=== PATIENT | female | born 1945 | race Caucasian/White ===

== ENCOUNTER 2019-06-17 15:49 | Outpatient (CLI) | payer MEDICARE, SELFPAY ==
--- NOTE | ~2019-06-17 | XR_ITS ---
EXAMINATION: XR chest 2V DATE: 06/17/2019 16:13 INDICATION: Other forms of dyspnea. Left chest pain. TECHNIQUE: Frontal and lateral views of the chest were obtained. COMPARISON: Chest 2 views 02/26/2014 FINDINGS: The chest demonstrates clear lungs without pneumonia, pleural effusion, or pneumothorax. Th e heart size is normal. There is a small hiatal hernia. IMPRESSION: 1. Small hiatal hernia. Reviewed, dictated and finalized at location A. CEMENTER IMPRESSION: 1. Small hiatal hernia.
== END 2019-06-17 15:50 | disposition home or self-care (01) ==
LOC: ANHIMG 15:52
PROVIDERS: PCP Family Medicine; Visit Provider Nurse Practitioner Family
DX: R06.09 Other forms of dyspnea (principal); K44.9 Diaphragmatic hernia without obstruction or gangrene
CPT/HCPCS: 71046

== ENCOUNTER 2019-06-26 12:27 | Outpatient (CLI) | payer MEDICARE, SELFPAY ==
--- NOTE | 2019-06-29 14:19 | WPDPFTINT ---
PFT Interpretation PFT Interpretation: This PFT met all criteria for ATS standards and reproducibility FEV/FVC post bronchodilator 83% of predicted FEV1 106% FVC 93% TLC 87% RV 96% RV/TLC 45% DLCO 72% when adjusted for alveolar volume but not adjusted for hemoglobin Flow volume loops appeared normal Impression: No significant obstruction but good response to bronchodilators which could be due to improved patient effort or true response. Mildly reduced diffusion capacity. Reactive airway disease or other lung diseases cannot be ruled out. Clinical correlation is advised.
== END 2019-06-26 12:28 | disposition home or self-care (01) ==
PROVIDERS: PCP Family Medicine; Visit Provider Nurse Practitioner Family
DX: R06.09 Other forms of dyspnea (principal)
CPT/HCPCS: 94060; 94726; 94729

== ENCOUNTER 2020-05-03 15:44 | Outpatient (CLI) | payer MEDICARE, SELFPAY ==
--- NOTE | ~2020-05-03 | MM_ITS ---
EXAMINATION: MM screening cristel BI w brianne HISTORY: Screening TECHNIQUE: Craniocaudal and mediolateral oblique 3-D tomosynthesis images were obtained and synthetic 2-D images were generated. CAD analysis was submitted and interpreted. COMPARISON: Comparison to multiple prior studies sequentially, with oldest reviewed study dated 03/08. BREAST PARENCHYMAL COMPOSITION: There are scattered areas of fibroglandular density. FINDINGS: There is no evidence of suspicious mass, calcification, or architectural distortion to sugg est malignancy in either breast. There has been no suspicious interval change. IMPRESSION: 1. No mammographic evidence of malignancy. 2. Recommend routine screening mammography in one year. BI-RADS Category 1: Negative Reviewed, dictated and finalized at location A. 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
== END 2020-05-03 15:45 | disposition home or self-care (01) ==
LOC: ANHIMG 15:45
PROVIDERS: PCP Family Medicine; Visit Provider Nurse Practitioner Family
DX: Z12.31 Encounter for screening mammogram for malignant neoplasm of breast (principal)
CPT/HCPCS: 77063; 77067

== ENCOUNTER 2020-05-19 12:53 | Outpatient (CLI) | payer MEDICARE, SELFPAY ==
--- NOTE | ~2020-05-19 | DEXA_ITS ---
Bone Density Report Name: Luis Bruner Age: 74 Sex: Female Ethnicity: White Date of : 1945 Indication: postmenopausal; hysterectomy; Referring Provider: Soco Petersen Study: Bone densitometry was performed. Exam Date: May 19, 2020 Accession number: [id number] Bone Density: Region BMD T-score Z-score Classification AP Spine (L1-L4) 0.924 -1.1 1.2 Osteopenia Femoral Neck (Left) 0.711 -1.2 0.8 Osteopenia Total Hip (Left) 0.866 -0.6 1.1 Normal Total Hip Bilateral Avg 0.882 -0.5 1.2 Normal Femoral Neck (Right) 0.692 -1.4 0.6 Osteopenia Total Hip (Right) 0.897 -0.4 1.3 Normal World Health Organization criteria for BMD impression classify patients as: Normal (T-score at or above -1.0), Osteopenia (T-score between -1.0 and -2.5), or Osteoporosis (T-score at or below -2.5). 10-year Fracture Risk(1): Major Osteoporotic Fracture 11% Hip Fracture 1.8% Reported Risk Factors: [place] (), Neck BMD=0.692, BMI=28.0 (1) FRAX(R) Version 3.08. Fracture probability calculated for an untreated patient. Fracture probability may be lower if the patient has received treatment. Clinical Information Provided by Patient: Has used the following medications: Vitamin D Has the following medical conditions: Hysterectomy Patient maximum height was 70 Menopause Age: 48 Drinks caffeinated beverages Onset of menses at age 14 Number of children 2 Impression: The patient has low bone mass, based on the Right Femoral Neck T-score. The patient has an estimated ten-year risk of hip fracture of 1.8% and an estimated ten-year risk of major fracture of 11%, based on the WHO FRAX algorithm. Discussion: BONE DENSITY IS LOW AT ONE OR MORE SKELETAL SITES. This patient's lowest T-score is low at one or more skeletal sites. It meets the World Health Organization's (WHO) criteria for ?low bone mass? (T-score between -1.0 and -2.5). The patient's 10-year risk of fracture as calculated by FRAX is less than the threshold where pharmacological therapy is recommended by the National Osteoporosis Foundation (NOF). However, all treatment decisions require clinical judgment and consideration of individual patient factors, including patient preferences, comorbidities, previous drug use, risk factors not captured in the FRAX model (e.g., frailty, falls, vitamin D deficiency, increased bone turnover, interval significant decline in bone density) and possible under or overestimation of fracture risk by FRAX. The patient should follow a healthful lifestyle (good nutrition with adequate calcium and vitamin D, and appropriate weight-bearing exercise). Follow-Up: Consider repeating this study in 2 to 3 years to reassess this patient's status, or sooner if there is some new clinical indication. Reported by: SASHA on 05/19/2020 1:11:00 PM
== END 2020-05-19 12:54 | disposition home or self-care (01) ==
PROVIDERS: PCP Family Medicine; Visit Provider Nurse Practitioner Family
DX: Z78.0 Asymptomatic menopausal state (principal); M85.88 Other specified disorders of bone density and structure, other site; M85.852 Other specified disorders of bone density and structure, left thigh; M85.851 Other specified disorders of bone density and structure, right thigh
CPT/HCPCS: 77080

== ENCOUNTER → 2020-08-23 11:10 | Outpatient (CLI) | payer MEDICARE, SELFPAY ==
--- NOTE | ~2020-08-23 | XR_ITS ---
XR abdomen/kub 1V DATE: 08/23/2020 11:27 INDICATION: Low abdominal pain, constipation. Microhematuria. TECHNIQUE: 2 supine AP views COMPARISON: 08/10/2016 KUB FINDINGS: There is a prominent amount of fecal material throughout most of the colon. No bowel obstru ction is evident. The psoas shadows are intact. No visceromegaly is evident. Distortion is intact. There are numerous calcified splenic granulomas. There is elevation of the right diaphragm. The lung bases appear clear. There is scoliosis and multilevel degenerative disc disease of the lumbar spine. There is a transitio nal lumbosacral vertebra with sacralization and pseudoarthrosis on the right. IMPRESSION: Prominent amount of fecal material in the colon; no bowel obstruction Reviewed, dictated and finalized at Location A. Reviewed, dictated and finalized at location A. IMPRESSION: Prominent amount of fecal material in the colon; no bowel obstructi on
== END ==
PROVIDERS: PCP Nurse Practitioner Family; Visit Provider Nurse Practitioner Family
DX: K59.00 Constipation, unspecified (principal)
CPT/HCPCS: 74018

== ENCOUNTER 2020-12-09 09:16 | Emergency (ER) | payer MEDICARE, SELFPAY ==
--- NOTE | ~2020-12-09 | XR_ITS ---
EXAMINATION: XR shoulder RT 1V INDICATION: Postreduction, second attempt TECHNIQUE: AP view of the right shoulder is obtained. COMPARISON: 1027 hours FINDINGS: The previously described glenohumeral dislocation has been reduced. Alignment is anatomic. The Hill-Sachs deformity questioned on earlier radiographs is not definitely seen. There is mild oste oarthritis of the acromioclavicular joint. IMPRESSION: 1. Reduced shoulder dislocation. Reviewed, dictated and finalized at location A.
--- NOTE | ~2020-12-09 | XR_ITS ---
EXAMINATION: XR shoulder RT min 2V INDICATION: Right shoulder pain and deformity TECHNIQUE: Three views of the right shoulder are submitted. COMPARISON: None FINDINGS: There is anterior and inferior dislocation of the humeral head with respect to the glenoid. The acromioclavicular joint is normal. There is a possible impaction fracture at the superolateral a spect of the right humeral head. Soft tissues are unremarkable. IMPRESSION: 1. Anterior and inferior dislocation of the right humeral head with possible Hill-Sachs fracture. Reviewed, dictated and finalized at location A. IMPRESSION: 1. Anterior and inferior dislocation of the right humeral head with possible Hi ll-Sachs fracture.
--- NOTE | ~2020-12-09 | XR_ITS ---
EXAMINATION: XR chest 1V portable INDICATION: Right-sided pain TECHNIQUE: Portable AP chest at 0934 hours COMPARISON: 06/17/2019 FINDINGS: The lungs are free of acute opacities. There is no pleural effusion or pneumothorax. The ca rdiomediastinal silhouette is normal. There is anterior and inferior dislocation of the right humeral head. IMPRESSION: 1. No acute cardiopulmonary abnormality. 2. Anterior and inferior dislocation of the right humeral head. Reviewed, dictated and finalized at location A.
--- NOTE | ~2020-12-09 | XR_ITS ---
EXAMINATION: XR shoulder RT 1V INDICATION: Right shoulder dislocation post reduction TECHNIQUE: Single AP view of the right shoulder is obtained. COMPARISON: 0935 hours FINDINGS: There is persistent dislocation of the humeral head with respect to the glenoid. Evaluation is limited by single view examination. Hill-Sachs fracture is again questioned. IMPRESSION: 1. Persistent right glenohumeral dislocation. Reviewed, dictated and finalized at location A.
--- NOTE | ~2020-12-09 | XR_ITS ---
EXAMINATION: XR humerus RT INDICATION: Right arm pain and deformity TECHNIQUE: Two views of the right humerus are obtained. COMPARISON: None available FINDINGS: There is anterior and inferior dislocation of the humeral head. No fracture is identified. The soft tissues are unremarkable. IMPRESSION: 1. Anterior and inferior dislocation of the humeral head. Reviewed, dictated and finalized at location A.
[2020-12-09 09:20] VITALS: BP 104/66; PULSE 62; RESP 12; TEMP 36.5; O2SAT 97
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
[2020-12-09] MEDS: MORPHINE SULFATE (*CRX) 4 MG/ML INJ IV PUSH (09:53)
[2020-12-09] MEDS: LACTATED RINGERS 1,000 ML 999 ML (09:54)
[2020-12-09 10:04] VITALS: BP 143/84; PULSE 70; RESP 12; O2SAT 100
[2020-12-09 11:20] VITALS: BP 155/76; PULSE 73; RESP 18; O2SAT 99
[2020-12-09 11:21] VITALS: BP 155/76; PULSE 72; RESP 18; O2SAT 100
[2020-12-09] MEDS: TETANUS,DIPHTHERIA,AC PERTUSSIS ADULT (0.5 ML) BOOSTRIX IM (11:39)
[2020-12-09] MEDS: KETOROLAC 15 MG/ML VIAL (*BKC) IV PUSH (12:13)
[2020-12-09 12:15] VITALS: BP 145/77; PULSE 75; RESP 18; O2SAT 98
[2020-12-09 12:52] VITALS: BP 145/77; PULSE 75; RESP 18; O2SAT 98
== END 2020-12-09 12:55 | disposition home or self-care (01) ==
PROVIDERS: Emergency Provider Emergency Medicine; PCP Nurse Practitioner Family
DX: S43.014A Anterior dislocation of right humerus, initial encounter (principal); Z23 Encounter for immunization; I10 Essential (primary) hypertension; E78.5 Hyperlipidemia, unspecified; K21.9 Gastro-esophageal reflux disease without esophagitis; Z87.891 Personal history of nicotine dependence; V18.4XXA Pedal cycle driver injured in noncollision transport accident in traffic accident, initial encounter; Y93.55 Activity, bike riding
CPT/HCPCS: 23650; 71045; 73020; 73030; 73060; 90471; 90715; 96374; 96375; 99285; J1885; J2270; J7120

== ENCOUNTER → 2021-05-05 01:58 | Outpatient (CLI) | payer MEDICARE, SELFPAY ==
[2021-05-06 14:05] LABS: SARS-CoV-2 RNA PCR Positive
== END ==
PROVIDERS: PCP Family Medicine; Visit Provider Nurse Practitioner
DX: U07.1 COVID-19 (principal)
CPT/HCPCS: C9803; U0003; U0005

== ENCOUNTER 2021-05-25 12:06 | Outpatient (CLI) | payer MEDICARE, SELFPAY ==
--- NOTE | ~2021-05-25 | MM_ITS ---
EXAMINATION: MM screening cristel BI w brianne HISTORY: Screening TECHNIQUE: Craniocaudal and mediolateral oblique 3-D tomosynthesis images were obtained and synthetic 2-D images were generated. CAD analysis was submitted and interpreted. COMPARISON: Comparison to multiple prior studies sequentially, with oldest reviewed study dated 03/08. BREAST PARENCHYMAL COMPOSITION: There are scattered areas of fibroglandular density. FINDINGS: There is no evidence of suspicious mass, calcification, or architectural distortion to sugg est malignancy in either breast. There has been no suspicious interval change. IMPRESSION: 1. No mammographic evidence of malignancy. 2. Recommend routine screening mammography in one year. BI-RADS Category 1: Negative Reviewed, dictated and finalized at location A. 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
== END 2021-05-25 12:07 | disposition home or self-care (01) ==
LOC: ANHIMG 12:10
PROVIDERS: PCP Family Medicine; Visit Provider Family Medicine
DX: Z12.31 Encounter for screening mammogram for malignant neoplasm of breast (principal)
CPT/HCPCS: 77063; 77067

== ENCOUNTER 2021-10-28 01:12 | Day surgery (SDC) | payer MEDICARE, SELFPAY ==
[2021-10-10 14:33] VITALS: BMI 28.8
--- NOTE | 2021-10-27 10:23 | WPDANESEPPF ---
Anes - Initial Pre Proc Eval Procedure: Operation Date: 10/28/21 08:30 Proposed Procedures p Screening Colonoscopy - Dat Landry MD Date/Time: 10/27/21 10:23 Surgeon: Dat Landry MD Pre Op Diagnosis: family hx of colon ca, hx of colon polyps Patient Data Age: 75 Gender: F Height: 1.75 m Weight: 88.5 kg Allergies Allergy/AdvReac Type Severity Reaction Status Date / Time amoxicillin Allergy Unknown Unknown Verified 10/28/21 07:42 Antihistamines - Alkylamine Allergy Unknown Hyperactive Verified 10/28/21 07:42 ANTIHISTAMINES AdvReac Unknown ANXIOUS, Uncoded 10/28/21 07:42 RESTLESS Home Medications Medication Instructions Recorded Confirmed Type cholecalciferol (vitamin D3) 50 2,000 unit PO DAILY 03/10/19 10/10/21 History mcg (2,000 unit) capsule multivitamin 1 tablet PO DAILY 03/10/19 10/10/21 History pantoprazole 40 mg tablet,delayed 40 mg PO DAILY #90 tabs 06/06/21 10/06/21 Rx release alprazolam 0.25 mg tablet 0.25 mg PO BID PRN anxiety #60 tabs 09/02/21 10/10/21 Rx losartan 50 mg tablet 50 mg PO DAILY #90 tabs 09/02/21 10/10/21 Rx ciprofloxacin HCl 500 mg tablet 500 mg PO Q12H #14 tabs 10/06/21 10/10/21 Rx pantoprazole 40 mg tablet,delayed 40 mg PO DAILY 10/10/21 10/10/21 History release amlodipine 5 mg tablet See Rx Instructions .Route 10/11/21 Rx .COMPLEX #90 tabs atorvastatin 20 mg tablet 20 mg PO QHS #90 tabs 10/13/21 Rx Patient hx anesthesia problems: none Family hx anesthesia problems: none Results Review: All pre-operative results and documents have been reviewed as part of the pre-operative evaluation. [facility] Past Medical History Medical History Anterior dislocation of right shoulder Anxiety Atopic dermatitis Dyspnea on exertion Essential (primary) hypertension GERD without esophagitis H. pylori infection (~03/2019) Hyperlipidemia Normal colonoscopy (~2016) Osteopenia Prediabetes Surgical History Surgical History H/O lateral meniscus repair of right knee (~2004) History of total hysterectomy (~1996) Family History Family History Mother Carcinoma of colon, Onset Age: 80 Patient's mother is in good health Patient's mother is Family history of malignant neoplasm Father Family history of heart disease in male family member before age 55 Sibling Family history of heart disease in male family member before age 55 Family history of hypercholesterolemia Hypertension Family history of cardiovascular disease Grandparent Diabetes mellitus Cerebrovascular accident Other Family history of malignant neoplasm of breast Social History Social History Smoking status: Never smoker Smoking end date: 05/07/73 Alcohol intake: current Drinks per week: 0 Substance use: never Substance use type: does not use Living arrangements: alone Gender identity (if verbalized by the patient): Female Spiritual care concerns: No Anes - Eval Final PreProcedure Day of Procedure 10/27/21 10:23 Patient weight: overweight Heart: regular rate and rhythm Lungs: clear to auscultation Airway: Mallampati scale class II Neurological: alert and oriented Last oral intake: >/= 8 hours ASA classification: II Emergent: no Anesthetic plan: proceed Anesthesia type and monitoring: general GIVS and standard monitoring Results Review: All pre-operative results and documents have been reviewed as part of the pre-operative evaluation. Informed Consent: The patient's anesthetic plan and its attendant risks and benefits were discussed with the patient/family/POA. Questions were solicited and answers provided to the satisfaction of the patient/family/POA.
--- NOTE | 2021-10-27 13:18 | PM.HPGS ---
History of Present Illness History of Present Illness Consent: Risks, benefits, and alternatives have been discussed and questions answered. Patient agrees to proceed with procedure. Chief complaint: family hx of colon ca, hx of colon polyps Narrative: Luis Bruner is a 75 year old female was referred for colon cancer screening. She had a polyp removed, tubular adenoma about 5 years ago. There is also a family history of colon cancer Review of Systems Review of Systems: All systems reviewed & are unremarkable except as noted in HPI and below PMFSH Past Medical History Medical History Anterior dislocation of right shoulder Anxiety Atopic dermatitis Dyspnea on exertion Essential (primary) hypertension GERD without esophagitis H. pylori infection (~03/2019) Hyperlipidemia Normal colonoscopy (~2016) Osteopenia Prediabetes Surgical History Surgical History H/O lateral meniscus repair of right knee (~2004) History of total hysterectomy (~1996) Family History Family History Mother Carcinoma of colon, Onset Age: 80 Patient's mother is in good health Patient's mother is Family history of malignant neoplasm Father Family history of heart disease in male family member before age 55 Sibling Family history of heart disease in male family member before age 55 Family history of hypercholesterolemia Hypertension Family history of cardiovascular disease Grandparent Diabetes mellitus Cerebrovascular accident Other Family history of malignant neoplasm of breast Social History Social History Smoking status: Never smoker Smoking end date: 05/07/73 Alcohol intake: current Drinks per week: 0 Substance use: never Substance use type: does not use Living arrangements: alone Gender identity (if verbalized by the patient): Female Spiritual care concerns: No Meds Home Medications and Allergies Home Medications Medication Instructions Recorded Confirmed Type cholecalciferol (vitamin D3) 50 2,000 unit PO DAILY 03/10/19 10/28/21 History mcg (2,000 unit) capsule multivitamin 1 tablet PO DAILY 03/10/19 10/28/21 History pantoprazole 40 mg tablet,delayed 40 mg PO DAILY #90 tabs 06/06/21 10/28/21 Rx release alprazolam 0.25 mg tablet 0.25 mg PO BID PRN anxiety #60 tabs 09/02/21 10/28/21 Rx losartan 50 mg tablet 50 mg PO DAILY #90 tabs 09/02/21 10/28/21 Rx ciprofloxacin HCl 500 mg tablet 500 mg PO Q12H #14 tabs 10/06/21 10/28/21 Rx pantoprazole 40 mg tablet,delayed 40 mg PO DAILY 10/10/21 10/28/21 History release amlodipine 5 mg tablet See Rx Instructions .Route 10/11/21 10/28/21 Rx .COMPLEX #90 tabs atorvastatin 20 mg tablet 20 mg PO QHS #90 tabs 10/13/21 10/28/21 Rx Allergies Allergy/AdvReac Type Severity Reaction Status Date / Time amoxicillin Allergy Unknown Unknown Verified 10/28/21 07:42 Antihistamines - Alkylamine Allergy Unknown Hyperactive Verified 10/28/21 07:42 ANTIHISTAMINES AdvReac Unknown ANXIOUS, Uncoded 10/28/21 07:42 RESTLESS Exam Const: General: alert Orientation/consciousness: patient oriented x3 Resp: Auscultation: clear to auscultation bilaterally Cardio: Rhythm: regular rhythm GI: GI Palp: Yes Soft to palpation and No Tenderness to palpation present (GI) Neuro: General: patient oriented x3 Assessment and Plan Assessment and plan (1) Colon cancer screening: Code(s): Z12.11 - Encounter for screening for malignant neoplasm of colon Status: Acute Assessment and Plan: Colonoscopy with possible biopsy or polypectomy or cautery or injection of substances.
[2021-10-28 07:45] VITALS: BP 140/85; PULSE 99; RESP 16; TEMP 36.5; O2SAT 100
[2021-10-28] MEDS: LACTATED RINGERS 1,000 ML 150 ML IV CONT (07:55)
[2021-10-28 08:50] VITALS: BP 113/65; PULSE 76; RESP 18; O2SAT 95
[2021-10-28 09:00] VITALS: BP 122/68; PULSE 70; RESP 18; O2SAT 98
== END 2021-10-28 09:17 | disposition home or self-care (01) ==
PROVIDERS: PCP Nurse Practitioner Family; Visit Provider Internal Medicine Gastroenterology
PROC: 0DJD8ZZ Inspection of Lower Intestinal Tract, Via Natural or Artificial Opening Endoscopic (ICD-10-PCS; CPT 45378; principal; 2021-10-28 08:30)
DX: Z12.11 Encounter for screening for malignant neoplasm of colon (principal); Z86.010 Personal history of colon polyps; Z80.0 Family history of malignant neoplasm of digestive organs; K21.9 Gastro-esophageal reflux disease without esophagitis; E78.5 Hyperlipidemia, unspecified; R73.03 Prediabetes; F41.9 Anxiety disorder, unspecified; M85.80 Other specified disorders of bone density and structure, unspecified site
CPT/HCPCS: G0105; J2704; J7120

== ENCOUNTER → 2022-02-24 09:49 | Outpatient (CLI) | payer MEDICARE, SELFPAY ==
--- NOTE | ~2022-02-24 | MR_ITS ---
EXAMINATION: MR knee LT wo con DATE: 02/24/2022 10:21 INDICATION: Left knee pain TECHNIQUE: Magnetic resonance imaging (MRI) of the left knee was performed without intravenous contra st. Sequences included coronal PD-weighted FSE, coronal PD-weighted FS FSE, sagittal T2-weighted FSE , sagittal PD-weighted FS FSE and axial PD weighted fat saturated FSE. COMPARISON: None. FINDINGS: Medial compartment: Tear involving the posterior body and posterior horn of the medial meniscus which includes a longitud inal horizontal tear plane extending to the inferior articular surface. There is a small meniscal fla p extending inferiorly from the periphery of the posterior body extending into the gutter deep to the medial collateral ligament suggesting the tear may be complex there is diffuse mild partial-thicknes s chondral thinning along the medial tibial plateau and weightbearing medial femoral condyle. There i s some superimposed deeper chondral fissuring with subtle underlying cortical irregularity at the pos terior weightbearing medial femoral condyle. Lateral compartment: Lateral meniscus is normal. Partial-thickness chondral fissuring without degenerative subchondral yenny nges at the central to medial aspect of the medial tibial plateau. Cartilage along the weightbearing lateral femoral condyle is normal. Patellofemoral compartment: Partial-thickness cartilage loss with smooth chondral surface and without degenerative subchondral ch anges at the inferior aspect of the trochlear groove and inferomedial aspect of the lateral trochlea. Patellar cartilage is normal. Ligaments and tendons: Anterior and posterior cruciate ligaments are normal. The fibular collateral ligament complex is norm al. There is edema along both the deep and superficial margins of the normal-appearing medial collate ral ligament which is most likely related to the medial meniscal tear and displaced flap although dif ferential would include low-grade medial collateral ligament sprain in the appropriate clinical setti ng. The extensor mechanism is normal. The visualized medial and lateral hamstring tendons as well as the iliotibial band are normal. Fluid: Minimal left knee joint effusion at the suprapatellar pouch. No loose osteochondral bodies identified . Osseous/other: Normal marrow signal. No fracture or pathologic marrow replacing process. IMPRESSION: 1. Medial meniscal tear with small displaced meniscal flap, likely complex. 2. Mild tricompartmental osteoarthritis with regions of moderate grade chondromalacia in all 3 compar tments. 3. Edema along the otherwise normal-appearing proximal medial collateral ligament which is most likel y related to the meniscal tear although differential would include low-grade sprain in the appropriat e clinical setting. Reviewed, dictated and finalized at location A. IMPRESSION: 1. Medial meniscal tear with small displaced meniscal flap, likely complex. 2. Mild tricompartmental osteoarthritis with regions of moderate grade chondrom alacia in all 3 compartments. 3. Edema along the otherwise normal-appearing proximal medial collateral ligame nt which is most likely related to the meniscal tear although differential woul d include low-grade sprain in the appropriate clinical setting.
== END ==
PROVIDERS: PCP Family Medicine; Visit Provider Nurse Practitioner Family
DX: S83.242A Other tear of medial meniscus, current injury, left knee, initial encounter (principal); M17.12 Unilateral primary osteoarthritis, left knee; R60.9 Edema, unspecified; T14.90XA Injury, unspecified, initial encounter
CPT/HCPCS: 73721

== ENCOUNTER 2022-03-07 11:14 | Outpatient (CLI) | payer MEDICARE, SELFPAY ==
--- NOTE | 2022-03-07 12:11 | ECG_ITS ---
Measurements Intervals [place] Rate: 75 P: 22 WV: 141 QRS: -47 QRSD: 112 T: 8 QT: 383 QTc: 429 Interpretive Statements SINUS RHYTHM LEFT ANTERIOR FASCICULAR BLOCK BORDERLINE T WAVE ABNORMALITY- INFERIOR LEADS BASELINE ARTIFACT- I, II, III, AVR, AVL, AVF, V1-V6 ABNORMAL ECG COMPARED TO ECG 05/19/2019 10:53:27 NO SIGNIFICANT CHANGES Electronically Signed On 03-07-2022 12:31:45 CDT by Braydon Ramírez D.O.
== END 2022-03-07 11:15 | disposition home or self-care (01) ==
LOC: ANHSURGERY 11:19
PROVIDERS: PCP Family Medicine; Visit Provider Orthopaedic Surgery
DX: I10 Essential (primary) hypertension (principal); Z01.818 Encounter for other preprocedural examination; I44.4 Left anterior fascicular block
CPT/HCPCS: 93005

== ENCOUNTER 2022-03-15 01:41 | Day surgery (SDC) | payer MEDICARE, SELFPAY ==
[2022-03-06 10:38] VITALS: BMI 28.5
--- NOTE | 2022-03-06 10:56 | PC.NURSE ---
Report to the Outpatient Waiting Room, entrance under the green pavilion located off [facility], at time _12:00PM on date __03/15/22 . Planned Procedure Time: _2:00PM . Time changes happen often and if your time is changed the preop area will call you the afternoon before. - You and your visitor will be asked to self-screen and do not enter if you have any COVID symptoms. - We encourage only one visitor and NO visitors under age 16 are allowed at this time. Your visitor will receive communication by the phone number that is given day of service. - The patient visitor is requested to social distance or may leave the building when not with patient due to restrictions. - A mask is required within the hospital. Patients may have clear liquids (water, carbonated beverages, clear teas, apple juice) until 3 hours prior to surgery with a maximum of 20 ounces. - No food from midnight until time of surgery Take the following medications with a SIP of water the morning of surgery: ____ALPRAZOLAM NEEDED Medications to discontinue per physician __HOLD ALL VITAMINS/SUPPLEMENTS 3 DAYS PRE-OP Date to take last dose__03/11/22 Please no make-up, nail faroese, hairspray, perfume, deodorant, or body powder the day of surgery. No jewelry (including any body piercings) or valuables the day of surgery, leave them at home. Please take a shower or bath the night before, or the morning of, surgery with an antibacterial soap. Wear comfortable, loose fitting clothing. Children are encouraged to wear pajamas. - Jewelry must be removed prior to entering the operating room. Rings and piercings that are not removed may be cut off. - The hospital will not accept responsibility for valuables. - Please leave all valuables, including medications, at home the day of surgery. If you are going home after surgery, a licensed buggy driver must drive you home. - NO public transportation without another adult. - We recommend that an adult stay with you for 24 hours following discharge. - We also recommend that you do not drive, make important decision, drink alcoholic beverages, or take any drugs that were not prescribed by your health care provider for at least 24 hours after your discharge time. Follow any additional instructions given to you from your surgeon. If you or anyone in your household have experienced Covid symptoms in the past week, please notify your surgeon or the nurse liaison at the phone number below for possible testing. Telephone instructions given to _PATIENT and asked if any additional questions and then verbalized understanding. Patient advised to call surgeon office or pre surgery nurse liaison [phone] if any additional questions.
[2022-03-15] VITALS (13 sets, daily range): BP systolic 131–176; BP diastolic 76–93; PULSE 66–97; RESP 10–20; TEMP 36.1–36.4; O2SAT 96–100
--- NOTE | 2022-03-15 07:15 | WPDHPUPDATE1 ---
History and Physical Update Update Date/Time: 03/15/22 07:15 History and Physical has been reviewed, including an updated exam of the patient. There are NO changes in the patient's condition. Risks, benefits, and alternatives have been discussed and questions answered. Patient agrees to proceed with procedure.
[2022-03-15] MEDS: ACETAMINOPHEN 500 MG TABLET 1000 MG PO (12:28)
[2022-03-15] MEDS: CELECOXIB 200 MG CAPSULE PO (12:29)
[2022-03-15] MEDS: LACTATED RINGERS 1,000 ML 30 ML IV CONT ×2 (12:46→17:45)
--- NOTE | 2022-03-15 14:12 | SUR.PREOP ---
1410 pt instructed on delay of procedure.
--- NOTE | 2022-03-15 14:41 | WPDANESEPPF ---
Anes - Initial Pre Proc Eval Procedure: Operation Date: 03/15/22 14:00 Proposed Procedures p Left Knee Arthroscopy - Tarik Carrasco MD Date/Time: 03/15/22 14:41 Surgeon: Tarik Carrasco MD Pre Op Diagnosis: left knee medial meniscal tear, chondromalacia Patient Data Age: 76 Gender: F Height: 1.77 m Weight: 88.3 kg Last Vital Signs Temp 36.4 C 03/15/22 12:52 Pulse 95 03/15/22 12:52 Resp 16 03/15/22 12:52 BP 150/85 H 03/15/22 12:52 Pulse Ox 98 03/15/22 12:52 O2 Del Method Room Air 03/15/22 13:11 Allergies Allergy/AdvReac Type Severity Reaction Status Date / Time amoxicillin Allergy Unknown Swelling Verified 03/15/22 12:19 of Lip/Tongue/Throat Antihistamines - Alkylamine AdvReac Unknown Hyperactive Verified 03/15/22 12:19 Home Medications Medication Instructions Recorded Confirmed Type cholecalciferol (vitamin D3) 50 2,000 unit PO DAILY 03/10/19 03/15/22 History mcg (2,000 unit) capsule alprazolam 0.25 mg tablet 0.25 mg PO BID PRN anxiety #60 tabs 09/02/21 03/15/22 Rx pantoprazole 40 mg tablet,delayed 40 mg PO DAILY 10/10/21 03/15/22 History release amlodipine 5 mg tablet See Rx Instructions .Route 10/11/21 03/15/22 Rx .COMPLEX #90 tabs atorvastatin 20 mg tablet 20 mg PO QHS #90 tabs 10/13/21 03/15/22 Rx losartan 50 mg tablet 50 mg PO DAILY #90 tabs 02/24/22 03/15/22 Rx cyanocobalamin (vitamin B-12) 2,500 mcg PO DAILY 03/06/22 03/15/22 History 2,500 mcg chewable tablet hydrocodone 5 mg-acetaminophen 325 1 tablet PO Q6H #28 tabs 03/13/22 03/13/22 Rx mg tablet ondansetron 4 mg disintegrating 4 mg PO Q6H #20 tabs 03/13/22 03/13/22 Rx tablet Patient hx anesthesia problems: post op nausea/vomiting Family hx anesthesia problems: none Results Review: All pre-operative results and documents have been reviewed as part of the pre-operative evaluation. [facility] Past Medical History Medical History Anterior dislocation of right shoulder Anxiety Atopic dermatitis Dyspnea on exertion Essential (primary) hypertension GERD without esophagitis H. pylori infection (~03/2019) Hyperlipidemia Left knee injury Left knee pain Medial meniscus tear Nausea after anesthesia Normal colonoscopy (~2016) Osteopenia Prediabetes Surgical History Surgical History H/O lateral meniscus repair of right knee (~2004) History of total hysterectomy (~1996) Family History Family History Mother Carcinoma of colon, Onset Age: 80 Patient's mother is in good health Patient's mother is Family history of malignant neoplasm Father Family history of heart disease in male family member before age 55 Sibling Family history of heart disease in male family member before age 55 Family history of hypercholesterolemia Hypertension Family history of cardiovascular disease Grandparent Diabetes mellitus Cerebrovascular accident Other Family history of malignant neoplasm of breast Social History Social History Smoking packs per day: 1 Smoking cigarettes per day: 20.0 Years smoked: 5 Smoking pack-years: 5.00 Smoking status: Former smoker Tobacco type: cigarettes Smoking end date: 05/07/73 Alcohol intake: current Drinks per week: 0 Substance use: never Substance use type: does not use Living arrangements: alone Gender identity (if verbalized by the patient): Female Spiritual care concerns: No Agree to blood products: Yes Anes - Eval Final PreProcedure Day of Procedure 03/15/22 14:41 Patient weight: overweight Heart: regular rate and rhythm Lungs: clear to auscultation Airway: Mallampati scale class II Neurological: alert and oriented Last oral intake: >/= 8 hours ASA classifi
[2022-03-15] MEDS: ceFAZolin 2 GM/D5W 50 ML 2 GM/50 ML BAG IVPB (15:09)
[2022-03-15] MEDS: BUPIVACAINE HCL 0.5% PF 30 ML VIAL INFILTRATE (16:00)
--- NOTE | 2022-03-15 16:12 | P.OP_ITS ---
Procedure Note - Detailed Date of Procedure 03/15/22 Pre-op Diagnosis left knee medial meniscal tear, chondromalacia Post-op Diagnosis Other (LEFT MEDIAL AND LATERAL MENISCUS TEAR) Procedure Performed LEFT KNEE SCOPE Surgeon Tarik Carrasco MD Anesthesia General Description of Procedure PATIENT WAS TAKEN TO THE OR. THE LEFT LEG WAS PREPPED AND DRAPED STERILE. TROCARS WERE PLACED IN THE USUAL FASHION. CAMERA WAS INTRODUCED. THERE WAS MILD CHONDROMALACIA TO THE PATELLA FEMORAL JOINT. THERE WAS A LOT OF SYNOVITIS IN ALL COMPARTMENTS. THE MEDIAL COMPARTMENT SHOWED CHONDROMALACIA TO THE MEDIAL FEMORAL CONDYLE. A SHAVER WAS USED TO PREFORM A CHONDROPLASTY. THERE WAS A MODERATE SIZED COMPLEX MEDIAL MENISCUS TEAR. THE TEAR WAS RESECTED WITH A BITER AND A SHAVER DOWN TO A SMOOTH BASE. THE ACL WAS INTACT. THE LATERAL MENISCUS WAS TORN AT THE MID SECTION. THE TEAR WAS RESECTED. THE LAT COMPARTMENT HAD KS NIMAL CHONDROMALACIA AT THE LATERAL PLATEAU. CHONDROPLASTY WAS PREFORMED. A SYNOVECTOMY WAS PREFORMED WELL. THE PATELLO FEMORAL JOINT UNDERWENT CHONDROPLASTY. SYNOVECTOMY WAS PREFORMED IN THE SUPERIOR MEDIAL COMPARTMENT. THE WOUNDS WERE APPROXIMATED WITH 4.0 NYLON. STERILE DRESSING WAS APPLIED. PATIENT WAS EXTUBATED. Estimated Blood Loss 5 Complications No immediate complications Condition Stable Disposition PACU
[2022-03-15] MEDS: fentaNYL CITRATE INJ (*CRX) 100 MCG/2 ML VIAL 25 MCG IV PUSH ×4 (16:33→17:12)
[2022-03-15] MEDS: ONDANSETRON INJ 4 MG/2 ML VIAL IV PUSH (17:40)
[2022-03-15] MEDS: HALOPERIDOL LACTATE 5 MG/ML VIAL IV PUSH ×2 (18:56→19:51)
--- NOTE | 2022-03-15 20:31 | SUR.PHASEII ---
delay discharge due to nausea and headache. This nurse has had contact with veronika HOLLINGSWORTH for medicine charted per jul. care is being taken over by Miko KERNS and he will continue to monitor. neuro grossly intact. MONTES not the worse she has ever had. surgical site looks good and PMS intact. VSS bp slilghtly elevated due to not taking her BP meds today.
--- NOTE | 2022-03-15 20:40 | SUR.PHASEII ---
[address] arzate on pt condition
== END 2022-03-15 21:05 | disposition home or self-care (01) ==
PROVIDERS: PCP Family Medicine; Visit Provider Orthopaedic Surgery
PROC: (CPT 29870; principal; 2022-03-15 14:00)
DX: S83.232A Complex tear of medial meniscus, current injury, left knee, initial encounter (principal); S83.282A Other tear of lateral meniscus, current injury, left knee, initial encounter; M65.862 Other synovitis and tenosynovitis, left lower leg; M22.42 Chondromalacia patellae, left knee; X50.0XXA Overexertion from strenuous movement or load, initial encounter; I10 Essential (primary) hypertension; E78.5 Hyperlipidemia, unspecified; R73.03 Prediabetes; K21.9 Gastro-esophageal reflux disease without esophagitis; F41.9 Anxiety disorder, unspecified; M85.80 Other specified disorders of bone density and structure, unspecified site; Z87.891 Personal history of nicotine dependence
CPT/HCPCS: 29880; 93005; 97161; A9270; J0131; J0690; J1100; J1630; J2405; J2704; J3010; J7120

== ENCOUNTER 2022-05-22 14:45 | Outpatient (RCR) | payer MEDICARE, SELFPAY ==
--- NOTE | 2022-04-03 15:53 | PTOPEVAL1 ---
Assessment and note entered by Nat Mejia DPT Evaluation Information Assessment Status Evaluation Reported Pain Level Pain Score 2: Self Report Additional Pain Score Comments Pt had surgery on L meniscus on 03/15/22, had fluid removed and 2 cortisone shots last week. Highest pain 9/10 and lowest 2/10. Currently using a cane some of the time, has been able to go without it at times at home. Has stairs at home and has been able to go 1 stair at a time. Has not tried going in the community much but was able to go to [employer] . Reports no problem driving. Returns to MD 05/15/22 . Reports difficulty doing activities where she has to sit with her legs down for a prolonged period of time. Is slowly returning to doing her typical household activities. No home health therapy. Assessment PT Clinical Summary The patient is presenting to skilled therapy s/p L knee arthroscopy on 03/15/22. She presents with decreased range of motion, decreased strength, and is using a cane at times. These impairments are contributing to her pain and difficulty performing her typical activities including walking and stairs. She will benefit from therapy to address these impairments and safely return to prior level of function. Plan of Care Interventions Electrical Stimulation,Gait Training,Hot Pack/Cold Pack,Manual Therapy,Neuro Re-education,Patient/ Caregiver Education,Therapeutic Activities, Therapeutic Exercise,Self-Care/Home Management PT Services Indicated Yes Treatment Frequency and 2 times a week for 4 weeks Duration These treatments will address the objective and functional deficits as defined above. The patient will be advanced safely and appropriately in order for the patient to progress towards his/her prior level of function. Additional exercises will be introduced and as well as a comprehensive home exercise program upon discharge, if needed, ?to ensure carryover of functional gains achieved in the clinic. This treatment plan has been reviewed and agreement upon by the patient.
--- NOTE | 2022-04-20 16:14 | PCPTNOTE ---
Patient called to cancel treatment this date due to being ill.
--- NOTE | 2022-04-28 08:34 | PCPTNOTE ---
Patient called to cancel this date due to weather.
--- NOTE | 2022-05-04 16:06 | PTOPPROG ---
Assessment and note entered by Nat eMjia DPEthan Evaluation Information Assessment Status Progress Subjective Information Overall feels better with therapy. States she can move better and is no longer using a cane. Reports her knee has been feeling good with walking at the grocery store, etc. Assessment PT Clinical Summary The patient has made good progress in therapy and reports greatly decreased pain. She no longer requires use of a cane and she demonstrates improved strength and range of motion. She continues to lack full terminal knee extension and will benefit from further therapy to safely return to full function. Plan of Care Interventions Electrical Stimulation,Gait Training,Hot Pack/Cold Pack,Manual Therapy,Neuro Re-education,Patient/ Caregiver Education,Therapeutic Activities, Therapeutic Exercise,Self-Care/Home Management PT Services Indicated Yes Treatment Frequency and 1 time a week for 3 weeks Duration These treatments will address the objective and functional deficits as defined above. The patient will be advanced safely and appropriately in order for the patient to progress towards his/her prior level of function. Additional exercises will be introduced and as well as a comprehensive home exercise program upon discharge, if needed, ?to ensure carryover of functional gains achieved in the clinic. This treatment plan has been reviewed and agreement upon by the patient.
--- NOTE | 2022-05-22 15:10 | PTOPDC ---
Assessment and note entered by Nat Mejia DPT Evaluation Information Assessment Status Progress Subjective Information Overall feels better with therapy. States she can move better and is no longer using a cane. Reports her knee has been feeling good with walking at the grocery store, etc. Reported Pain Level Pain Score 0: Self Report Assessment PT Clinical Summary The patient has made excellent progress in therapy . She reports minimal pain, demonstrates full knee ROM and good strength, and now ambulates with a normalized gait. She will be discharged this visit with education to follow up with PT and/or MD as needed. Plan of Care PT Services Indicated No
== END 2022-05-22 15:31 | disposition home or self-care (01) ==
LOC: ANHGOSHPT 14:45
PROVIDERS: PCP Family Medicine; Visit Provider Orthopaedic Surgery
DX: M25.562 Pain in left knee (principal); S83.249D Other tear of medial meniscus, current injury, unspecified knee, subsequent encounter; Z98.890 Other specified postprocedural states
CPT/HCPCS: 97110; 97140; 97161; 97530

== ENCOUNTER 2022-06-21 15:47 | Outpatient (CLI) | payer MEDICARE, SELFPAY ==
--- NOTE | ~2022-06-21 | MM_ITS ---
EXAMINATION: MM screening cristel BI w brianne HISTORY: Screening mammogram TECHNIQUE: Craniocaudal and mediolateral oblique 3-D tomosynthesis images were obtained and synthetic 2-D images were generated. CAD analysis was submitted and interpreted. COMPARISON: 05/25/2021, 05/03/2020, 04/14/2019 bilateral screening mammogram examinations BREAST PARENCHYMAL COMPOSITION: FINDINGS: There is no evidence of suspicious mass, calcification, or architectural distortion to sugg est malignancy in either breast. There has been no suspicious interval change. IMPRESSION: 1. No mammographic evidence of malignancy. 2. Recommend routine screening mammography in one year. BI-RADS Category 1: Negative Reviewed, dictated and finalized at location A. ICATOR FOAM RUBBER
== END 2022-06-21 15:48 | disposition home or self-care (01) ==
PROVIDERS: PCP Family Medicine; Visit Provider Family Medicine
DX: Z12.31 Encounter for screening mammogram for malignant neoplasm of breast (principal)
CPT/HCPCS: 77063; 77067

== ENCOUNTER 2022-08-07 09:37 | Outpatient (CLI) | payer MEDICARE, SELFPAY ==
[2022-08-07 12:37] LABS: Alanine Aminotransferase 33 U/L (6-35); Albumin Level 4.1 g/dL (3.5-5.1); Alkaline Phosphatase 85 U/L (38-126); Anion Gap 3 mmol/L (8-16); Aspartate Amino Transferase 43 U/L (14-36); Bilirubin,Total 0.7 mg/dL (0.2-1.3); Blood Urea Nitrogen 11 mg/dL (7-17); Carbon Dioxide 30 mmol/L (22-30); Chloride 103 mmol/L (98-107); Cholesterol 156 mg/dL (0-200); Estimated Glomerular Filt Rate > 60; Glucose 105 mg/dL (65-110); HDL Direct 56 mg/dL; Potassium 4.1 mmol/L (3.4-5.0); Sodium 136 mmol/L (137-145); Triglycerides 68 mg/dL (<150)
[2022-08-07 12:38] LABS: Basophils Percent Auto 0.8 % (0.2-1.2); Eosinophils Absolute Auto 0.1 K/mm3 (0-0.3); Eosinophils Percent Auto 2.7 % (0-4.4); Hematocrit 39.4 % (37.0-47.0); Hemoglobin 12.9 g/dL (12.0-15.0); Immature Granulocyte Absolute 0.02 K/mm3 (0.00-0.031); Immature Granulocyte Percent A 0.4 % (0-0.5); Lymphocytes Absolute Auto 0.83 K/mm3 (0.9-3.2); Lymphocytes Percent Auto 15.9 % (18.3-44.2); Mean Corpuscular HGB Conc 32.7 g/dl (32-36); Mean Corpuscular Hemoglobin 30.8 pg (26-34); Mean Platelet Volume 10.5 fl (7.4-10.4); Monocytes Absolute Auto 0.4 K/mm3 (0.1-0.6); Monocytes Percent Auto 7.1 % (2.6-8.5); Neutrophils Absolute Auto 3.8 K/mm3 (1.3-6.7); Neutrophils Percent Auto 73.1 % (45.5-73.1); Platelet Count Result 298 k/mm3 (150-375); Red Blood Count 4.19 M/mm3 (4.2-5.4); Red Cell Distribution Width 14.4 % (11.5-14.5); White Blood Count 5.2 K/mm3 (4.5-10.0)
[2022-08-07 12:48] LABS: LDL Cholesterol Direct 71 mg/dL
[2022-08-07 13:47] LABS: Hemoglobin A1C 6.4 % (<5.7)
== END 2022-08-07 09:38 | disposition home or self-care (01) ==
LOC: ANHGOSHLAB 09:39
PROVIDERS: PCP Family Medicine; Visit Provider Nurse Practitioner Family
DX: I10 Essential (primary) hypertension (principal); E78.5 Hyperlipidemia, unspecified; R73.03 Prediabetes
CPT/HCPCS: 36415; 80053; 80061; 83036; 84443; 85025

== ENCOUNTER 2022-12-17 17:59 | Emergency (ER) | payer MEDICARE, SELFPAY ==
[2022-12-17 18:18] VITALS: BP 168/91; PULSE 90; RESP 16; TEMP 36.3; O2SAT 98
--- NOTE | 2022-12-17 18:20 | ED.FEMALEGU ---
HPI - Female Genitourinary General Chief complaint: Urogenital-Female Stated complaint: UTI SYMPTOMS Time Seen by Provider: 12/17/22 18:20 Source: patient, RN notes reviewed and old records reviewed Mode of arrival: ambulatory Limitations: no limitations History of Present Illness HPI Narrative: 77 year old female who presents to [facility] care with complaints of having urinary pressure and frequency of urination which started yesterday and she took home UTI test today which was positive. Patient reports that she was treated 2 times in November for UTI 1st with Macrobid and 2nd time with doxycycline. Patient reports no fever, chills or any nausea or vomiting is drinking fluids well. Patient reports no vaginal discharge or any itching. Patient reports that she had a lot of gas yesterday and took some gas X and had pressure to her lower abdomen also, denies any diarrhea or any change in bowel habits. MD elicited complaint: UTI Pertinent past history: other (treated X2 for UTI last month) Onset (ago): day(s) (1) Location of symptoms: suprapubic Severity scale (1-10): 5 Vaginal discharge: none Vaginal bleeding: none Related Data Home Medications Medication Instructions Recorded Confirmed cholecalciferol (vitamin D3) 50 2,000 unit PO DAILY 03/10/19 12/17/22 mcg (2,000 unit) capsule cyanocobalamin (vitamin B-12) 2,500 mcg PO DAILY 03/06/22 12/17/22 2,500 mcg chewable tablet Allergies Allergy/AdvReac Type Severity Reaction Status Date / Time amoxicillin Allergy Unknown Swelling Verified 12/17/22 18:09 of Lip/Tongue/Throat Antihistamines - Alkylamine AdvReac Unknown Hyperactive Verified 12/17/22 18:09 Review of Systems Review of Systems: CONSTITUTIONAL: Denies fever, chills, or sweats. CARDIOVASCULAR: Denies chest pain, palpitations, or edema. RESPIRATORY: Denies cough or dyspnea. GASTROINTESTINAL:Suprapubic pressure, no nausea, vomiting, or diarrhea. GENITOURINARY: Reports no burning, states pressure and frequency, urgency. Denies flank pain or hematuria. SKIN: Denies rash or itching. MUSCULOSKELETAL: Denies back pain or myalgia. Denies CVA tenderness NEUROLOGIC: Denies headache All systems reviewed & are unremarkable except as noted in HPI and below [facility] Past Medical History Medical History Anterior dislocation of right shoulder Anxiety Atopic dermatitis Chronic venous insufficiency of lower extremity Dyspnea on exertion Essential (primary) hypertension GERD without esophagitis H. pylori infection (~03/2019) Hyperlipidemia Left knee injury Left knee pain Medial meniscus tear Nausea after anesthesia Normal colonoscopy (~2016) Osteopenia Prediabetes Surgical History Surgical History H/O bladder repair surgery [address] Edwards H/O lateral meniscus repair of right knee (~2004) History of total hysterectomy (~1996) S/P left knee arthroscopy DOS 03/15/22 Family History Family History Mother Carcinoma of colon, Onset Age: 80 Patient's mother is in good health Patient's mother is Family history of malignant neoplasm Father Family history of heart disease in male family member before age 55 Sibling Family history of heart disease in male family member before age 55 Family history of hypercholesterolemia Hypertension Family history of cardiovascular disease Grandparent Diabetes mellitus Cerebrovascular accident Other Family history of malignant neoplasm of breast Social History Social History Smoking packs per day: 1 Smoking cigarettes per day: 20.0 Years smoked: 5 Smoking pack-years: 5.00 Smoking status: Former smoker Tobacco type: cigarettes Smoking end date: 05/07/73 Alcohol intake: current Drinks per week: 0
== END 2022-12-17 18:40 | disposition home or self-care (01) ==
PROVIDERS: Emergency Provider Registered Nurse; PCP Family Medicine
DX: R30.0 Dysuria (principal); R35.0 Frequency of micturition; R39.15 Urgency of urination; I10 Essential (primary) hypertension; K21.9 Gastro-esophageal reflux disease without esophagitis; E78.5 Hyperlipidemia, unspecified; M85.80 Other specified disorders of bone density and structure, unspecified site; R73.03 Prediabetes; F41.9 Anxiety disorder, unspecified
CPT/HCPCS: 81003; 87086; 87088; 99213; G0463

== ENCOUNTER 2023-02-01 08:04 | Outpatient (CLI) | payer MEDICARE, SELFPAY ==
[2023-02-01 09:58] LABS: Basophils Absolute Auto 0.1 K/mm3 (0.0-0.1); Basophils Percent Auto 1.4 % (0.2-1.2); Eosinophils Absolute Auto 0.3 K/mm3 (0-0.3); Eosinophils Percent Auto 5.9 % (0-4.4); Hematocrit 38.5 % (37.0-47.0); Hemoglobin 12.2 g/dL (12.0-15.0); Immature Granulocyte Absolute 0.02 K/mm3 (0.00-0.031); Immature Granulocyte Percent A 0.5 % (0-0.5); Lymphocytes Absolute Auto 1.02 K/mm3 (0.9-3.2); Lymphocytes Percent Auto 23.1 % (18.3-44.2); Mean Corpuscular HGB Conc 31.7 g/dl (32-36); Mean Corpuscular Volume 91.4 fl (80-100); Mean Platelet Volume 10.4 fl (7.4-10.4); Monocytes Absolute Auto 0.3 K/mm3 (0.1-0.6); Monocytes Percent Auto 7.5 % (2.6-8.5); Neutrophils Absolute Auto 2.7 K/mm3 (1.3-6.7); Neutrophils Percent Auto 61.6 % (45.5-73.1); Platelet Count Result 257 k/mm3 (150-375); Red Blood Count 4.21 M/mm3 (4.2-5.4); Red Cell Distribution Width 15.3 % (11.5-14.5); White Blood Count 4.4 K/mm3 (4.5-10.0)
[2023-02-01 10:19] LABS: Hemoglobin A1C 6.2 % (<5.7)
[2023-02-01 10:23] LABS: Alanine Aminotransferase 24 U/L (6-35); Albumin Level 4.1 g/dL (3.5-5.1); Alkaline Phosphatase 67 U/L (38-126); Anion Gap 3 mmol/L (8-16); Aspartate Amino Transferase 36 U/L (14-36); Bilirubin,Total 0.7 mg/dL (0.2-1.3); Blood Urea Nitrogen 13 mg/dL (7-17); Calcium 9.3 mg/dL (8.4-10.2); Carbon Dioxide 31 mmol/L (22-30); Chloride 104 mmol/L (98-107); Cholesterol 162 mg/dL (0-200); Estimated Glomerular Filt Rate > 60; Glucose 95 mg/dL (65-110); HDL Direct 52 mg/dL; Potassium 4.1 mmol/L (3.4-5.0); Sodium 138 mmol/L (137-145); Triglycerides 55 mg/dL (<150)
[2023-02-01 10:33] LABS: LDL Cholesterol Direct 80 mg/dL
[2023-02-05 12:49] LABS: Vitamin D 1,25 (OH)2 Total 28 pg/mL (18-72); Vitamin D2 1,25 (OH)2 <8 pg/mL; Vitamin D3 1,25 (OH)2 28 pg/mL
== END 2023-02-01 08:05 | disposition home or self-care (01) ==
PROVIDERS: PCP Family Medicine; Visit Provider Nurse Practitioner Family
DX: E55.9 Vitamin D deficiency, unspecified (principal); E11.9 Type 2 diabetes mellitus without complications; I10 Essential (primary) hypertension
CPT/HCPCS: 36415; 80053; 80061; 82652; 83036; 85025

== ENCOUNTER 2023-04-17 16:20 | Outpatient (CLI) | payer MEDICARE, SELFPAY ==
--- NOTE | ~2023-04-17 | US_ITS ---
Renal-Bladder ultrasound Clinical History: Recurrent UTI Technique: Real-time sonographic imaging of the kidneys and urinary bladder was performed. Findings: The right kidney measures 11.3 cm in length and the left kidney measures 12.3 cm. There is no hydronephrosis or renal calculus identified. Renal cortical echogenicity is within normal limits. No renal mass lesion is identified. The urinary bladder is moderately distended at the time of this exam. No intraluminal echoes are iden tified. No abnormal wall thickening is seen. Impression: Unremarkable ultrasound of the kidneys and urinary bladder. Reviewed, dictated and finalized at location M. NG STRING CUTTER Impression: Unremarkable ultrasound of the kidneys and urinary bladder.
== END 2023-04-17 16:21 | disposition home or self-care (01) ==
PROVIDERS: PCP Family Medicine; Visit Provider Physician Assistant
DX: N39.0 Urinary tract infection, site not specified (principal)
CPT/HCPCS: 76770

== ENCOUNTER → 2023-06-18 11:31 | Outpatient (CLI) | payer MEDICARE, SELFPAY ==
--- NOTE | ~2023-06-18 | XR_ITS ---
EXAMINATION: [id number] DATE: 06/18/2023 11:53 INDICATION: 2 weeks of the lateral mid left rib pain. TECHNIQUE: A frontal inspiratory view of the chest and 3 views of the left ribs were obtained. COMPARISON: Chest radiograph dated 06/17/2019 FINDINGS: No rib fractures identified. There is linear discoid atelectasis/scarring at the medial left lower jeremiah ng zone. Remainder of the lungs are clear. No pulmonary edema, pleural effusion or pneumothorax. Hear t size is normal. Air-fluid level within a moderate-sized hiatal hernia. Mild S-shaped scoliosis of t he lumbar spine with moderate to severe spondylosis. IMPRESSION: 1. No rib fracture. 2. Discoid atelectasis/scarring at the medial left lower lung zone. 3. Moderate-sized hiatal hernia. Reviewed, dictated and finalized at location A. GEMENT CONSULTING
== END ==
PROVIDERS: PCP Family Medicine; Visit Provider Family Medicine
DX: R07.81 Pleurodynia (principal); K44.9 Diaphragmatic hernia without obstruction or gangrene
CPT/HCPCS: 71101

== ENCOUNTER 2023-06-19 07:43 | Outpatient (CLI) | payer MEDICARE, SELFPAY ==
--- NOTE | ~2023-06-19 | DEXA_ITS ---
Bone Density Report Name: ALMA SOLIS Age: 77 Sex: Female Ethnicity: White Date of : 1945 Indication: osteopenia; height loss; hysterectomy; Referring Provider: DEJAN NÚÑEZ Study: Bone densitometry was performed. Exam Date: June 19, 2023 Accession number: [id number] Bone Density: Region BMD T-score Z-score Classification AP Spine(L1-L4) 0.993 -0.5 2.0 Normal Femoral Neck (Left) 0.657 -1.7 0.4 Osteopenia Total Hip (Left) 0.762 -1.5 0.4 Osteopenia Femoral Neck (Right) 0.760 -0.8 1.3 Normal Total Hip (Right) 0.853 -0.7 1.1 Normal Total Hip Mean 0.808 -1.1 0.8 Osteopenia World Health Organization criteria for BMD impression classify patients as: Normal (T-score at or above -1.0), Osteopenia (T-score between -1.0 and -2.5), or Osteoporosis (T-score at or below -2.5). 10-year Fracture Risk(1): Major Osteoporotic Fracture 12% Hip Fracture 2.9% Reported Risk Factors: [place] (), Neck BMD=0.657, BMI=30.1 (1) FRAX(R) Version 3.08. Fracture probability calculated for an untreated patient. Fracture probability may be lower if the patient has received treatment. Previous Exams: Region Exam Age BMD T-score BMD Change BMD Change Date g/cm2 vs Baseline vs Previous AP Spine (L1-L4) 06/19/2023 77 0.993 -0.5 0.069 (7.5%)# 0.069 (7.5%)# 05/19/2020 74 0.924 -1.1 Total Hip(Left) 06/19/2023 77 0.762 -1.5 -0.104 (-12.0% -0.104 (-12.0% 05/19/2020 74 0.866 -0.6 Total Hip(Right) 06/19/2023 77 0.853 -0.7 -0.044 (-4.9%) -0.044 (-4.9%) 05/19/2020 74 0.897 -0.4 *Denotes significance at 95% confidence level, LSC for AP Spine = 0.022 g/cm2, LSC for Total Hip = 0.027 g/cm2 # Denotes dissimilar scan types or analysis methods Clinical Information Provided by Patient: Has used the following medications: Vitamin D Has the following medical conditions: Hysterectomy Patient maximum height was 70.75 Menopause Age: 48 No regular weight bearing exercise Drinks caffeinated beverages Onset of menses at age 16 Number of children 2 Impression: The patient has low bone mass, based on the Left Femoral Neck T-score. The patient has an estimated ten-year risk of hip fracture of 2.9% and an estimated ten-year risk of major fracture of 12%, based on the WHO FRAX algorithm. No significant bone loss was observed. Discussion: BONE DENSITY IS LOW AT ONE OR MORE SKELETAL SITES. This patient's lowest T-score is low at one or more skeletal sites. It meets the World Health Organization's (WHO) criteria
== END 2023-06-19 07:44 | disposition home or self-care (01) ==
PROVIDERS: PCP Family Medicine; Visit Provider Nurse Practitioner Family
DX: Z78.0 Asymptomatic menopausal state (principal); M85.852 Other specified disorders of bone density and structure, left thigh; M85.851 Other specified disorders of bone density and structure, right thigh
CPT/HCPCS: 77080

== ENCOUNTER 2023-07-11 15:13 | Outpatient (CLI) | payer MEDICARE, SELFPAY ==
--- NOTE | ~2023-07-11 | MM_ITS ---
EXAMINATION: MM screening cristel BI w brianne HISTORY: Screening mammogram TECHNIQUE: Craniocaudal and mediolateral oblique 3-D tomosynthesis images were obtained and synthetic 2-D images were generated. CAD analysis was submitted and interpreted. COMPARISON: June 21, 2022, May 25, 2021, May 03, 2020 bilateral screening mammogram exam inations BREAST PARENCHYMAL COMPOSITION: There are scattered areas of fibroglandular density. FINDINGS: There is no evidence of suspicious mass, calcification, or architectural distortion to sugg est malignancy in either breast. There has been no suspicious interval change. IMPRESSION: 1. No mammographic evidence of malignancy. 2. Recommend routine screening mammography in one year. BI-RADS Category 1: Negative Reviewed, dictated and finalized at location A. UITER ACCOUNT MANAGER
== END 2023-07-11 15:14 | disposition home or self-care (01) ==
LOC: ANHIMG 15:14
PROVIDERS: PCP Family Medicine; Visit Provider Family Medicine
DX: Z12.31 Encounter for screening mammogram for malignant neoplasm of breast (principal)
CPT/HCPCS: 77063; 77067

== ENCOUNTER 2024-02-01 08:13 | Outpatient (CLI) | payer MEDICARE, SELFPAY ==
[2024-02-01 13:49] LABS: Basophils Absolute Auto 0.1 K/mm3 (0.0-0.1); Basophils Percent Auto 1.3 % (0.2-1.2); Eosinophils Absolute Auto 0.2 K/mm3 (0-0.3); Eosinophils Percent Auto 3.8 % (0-4.4); Hematocrit 36.1 % (37.0-47.0); Hemoglobin 11.2 g/dL (12.0-15.0); Immature Granulocyte Absolute 0.01 K/mm3 (0.00-0.031); Immature Granulocyte Percent A 0.2 % (0-0.5); Lymphocytes Absolute Auto 1.24 K/mm3 (0.9-3.2); Lymphocytes Percent Auto 27.4 % (18.3-44.2); Mean Corpuscular Hemoglobin 28.7 pg (26-34); Mean Corpuscular Volume 92.6 fl (80-100); Mean Platelet Volume 10.6 fl (7.4-10.4); Monocytes Absolute Auto 0.3 K/mm3 (0.1-0.6); Monocytes Percent Auto 6.9 % (2.6-8.5); Neutrophils Absolute Auto 2.7 K/mm3 (1.3-6.7); Neutrophils Percent Auto 60.4 % (45.5-73.1); Platelet Count Result 312 k/mm3 (150-375); Red Cell Distribution Width 15.9 % (11.5-14.5); White Blood Count 4.5 K/mm3 (4.5-10.0)
[2024-02-01 14:11] LABS: Vitamin D 25 Hydroxy 54.3 ng/mL
[2024-02-01 14:24] LABS: Alanine Aminotransferase 16 U/L (6-35); Alkaline Phosphatase 69 U/L (38-126); Anion Gap 7 mmol/L (4-12); Aspartate Amino Transferase 46 U/L (14-36); Bilirubin,Total 0.5 mg/dL (0.2-1.3); Blood Urea Nitrogen 19 mg/dL (7-17); Calcium 9.2 mg/dL (8.4-10.2); Carbon Dioxide 29 mmol/L (22-30); Chloride 104 mmol/L (98-107); Cholesterol 145 mg/dL (0-200); Estimated Glomerular Filt Rate > 60; Glucose 84 mg/dL (65-110); HDL Direct 61 mg/dL; Potassium 4.4 mmol/L (3.4-5.0); Sodium 140 mmol/L (137-145); Triglycerides 67 mg/dL (<150)
[2024-02-01 14:35] LABS: LDL Cholesterol Direct 59 mg/dL
[2024-02-01 15:41] LABS: Hemoglobin A1C 6.5 % (<5.7)
== END 2024-02-01 08:14 | disposition home or self-care (01) ==
LOC: ANHGOSHLAB 08:13
PROVIDERS: PCP Family Medicine; Visit Provider Nurse Practitioner Family
DX: E04.9 Nontoxic goiter, unspecified (principal); E55.9 Vitamin D deficiency, unspecified; I10 Essential (primary) hypertension; R73.03 Prediabetes; E78.5 Hyperlipidemia, unspecified
CPT/HCPCS: 36415; 80053; 80061; 82306; 83036; 84443; 85025

== ENCOUNTER 2024-02-06 15:28 | Outpatient (CLI) | payer MEDICARE, SELFPAY ==
--- NOTE | ~2024-02-06 | US_ITS ---
EXAMINATION: US thyroid DATE: 02/06/2024 16:12 INDICATION: Nontoxic goiter, unspecified. TECHNIQUE: Multiple ultrasound images of the thyroid were obtained. COMPARISON: None. FINDINGS: The right thyroid lobe measures 4.4 x 1.4 x 1.6 cm. The left thyroid lobe measures 3.4 x 1.6 x 1.4 c m. In the left thyroid lobe, there is a 9 mm solid, hypoechoic, wider than tall nodule with ill-defi shaheed margin without echogenic foci (TI-RADS TR4). In the left thyroid lobe, there is a 5 mm solid, hyp oechoic, wider than tall nodule with ill-defined margin without echogenic foci (TR4). IMPRESSION: 1. Small thyroid nodules, likely not clinically significant. No follow-up is needed. Reviewed, dictated and finalized at location A. IMPRESSION: 1. Small thyroid nodules, likely not clinically significant. No follow-up is ne eded.
== END 2024-02-06 15:29 | disposition home or self-care (01) ==
PROVIDERS: PCP Family Medicine; Visit Provider Nurse Practitioner Family
DX: E04.2 Nontoxic multinodular goiter (principal)
CPT/HCPCS: 76536

== ENCOUNTER 2024-03-03 07:25 | Emergency (ER) | payer MEDICARE, SELFPAY ==
[2024-03-03] VITALS (28 sets, daily range): BP systolic 160–206; BP diastolic 82–120; PULSE 61–111; RESP 12–24; TEMP 36.7; O2SAT 91–100
--- NOTE | ~2024-03-03 | XR_ITS ---
EXAMINATION: XR chest 2V DATE: 03/03/2024 08:26 INDICATION: Chest pressure. Hypertension. TECHNIQUE: Frontal and lateral views of the chest were obtained. COMPARISON: Chest single view 12/09/2020 FINDINGS: There is chronic mild elevation of right hemidiaphragm. No pleural effusion or pneumothorax . The heart size is normal. There is a moderate-sized hiatal hernia. IMPRESSION: 1. Moderate-sized hiatal hernia. Reviewed, dictated and finalized at location []
--- NOTE | 2024-03-03 07:40 | ECG_ITS ---
Test Date: 2024-03-03 07:46:16 Measurements Intervals [place] Rate: 89 P: 48 OR: 152 QRS: -43 QRSD: 114 T: 47 QT: 374 QTc: 457 Interpretive Statements SINUS RHYTHM LEFT AXIS DEVIATION [QRS AXIS < -30] PATTERN CONSISTENT WITH PULMONARY DISEASE LEFT VENTRICULAR HYPERTROPHY AND ST-T CHANGE [VOLTAGE CRITERIA PLUS ST/T ABNORMALITY] No previous ECG available for comparison Electronically Signed On 03-03-2024 11:00:29 CDT by Ghulam Springer M.D.
--- NOTE | 2024-03-03 07:42 | ED_ITS ---
HPI - General Adult General Chief complaint: Recheck/Abnormal Lab/Rx Stated complaint: elevated BP Time Seen by Provider: 03/03/24 07:29 Source: patient and RN notes reviewed Limitations: no limitations History of Present Illness HPI narrative: This is a 78 year old female with history of hypertension, hyperlipidemia, anxiety who presents for evaluation of elevated blood pressures. Patient states last night she felt like her heart was pounding so she checked her blood pressure. She states her blood pressure was elevated to 180s systolic and it was elevated to 200s 10 minutes later. She states this morning she still intermittently feels heart pounding. She took her metoprolol and losartan at 630 am this morning. She does not feel like her heart is racing now. She reports having mild chest tightness. She denies abdominal pain, vision changes, cough URI, vomiting. focal weakness. She states she does not generally feel wel l. Related Data Home Medications Medication Instructions Recorded Confirmed cholecalciferol (vitamin D3) 50 2,000 unit PO DAILY 03/10/19 01/29/24 mcg (2,000 unit) capsule mecobalamin (vitamin B12) 1,000 1,000 mcg PO DAILY 01/29/24 01/29/24 mcg lozenges Allergies Allergy/AdvReac Type Severity Reaction Status Date / Time amoxicillin Allergy Unknown Swelling Verified 03/03/24 07:26 of Lip/Tongue/Throat Antihistamines - Alkylamine AdvReac Unknown Hyperactive Verified 03/03/24 07:26 Review of Systems Constitutional: Constitutional: Denies weakness Eyes: Eyes: Denies change in vision ENT: Denies nasal congestion and Denies sore throat Cardiovascular: Cardiovascular: Denies syncope, Reports rapid heart rate, Denies irregular heart rhythm, Denies leg edema and Denies dyspnea Respiratory: Respiratory: Denies chest congestion, Denies hemoptysis, Denies excessive phlegm production and Denies dyspnea Gastrointestinal: Gastrointestinal: Denies abdominal pain, Denies hematochezia, Denies diarrhea and Denies vomiting Genitourinary: Genitourinary: Denies hematuria and Denies dysuria Musculoskeletal: Musculoskeletal: Denies joint swelling, Denies loss of height and Denies muscle weakness Neurologic: Denies syncope, Denies focal weakness and Denies weakness Psychiatric: Psychiatric: Reports anxiety PMFSH Past Medical History Medical History Anterior dislocation of right shoulder Anxiety Atopic dermatitis Chronic venous insufficiency of lower extremity Degenerative joint disease of knee Difficulty sleeping DJD (degenerative joint disease) Dyspnea on exertion Essential (primary) hypertension GERD without esophagitis H. pylori infection (~03/2019) Hyperlipidemia Left knee injury Left knee pain Medial meniscus tear Nausea after anesthesia Normal colonoscopy (~2016) Osteopenia Prediabetes Surgical History Surgical History H/O bladder repair surgery [address] Edwards H/O lateral meniscus repair of right knee (~2004) History of total hysterectomy (~1996) S/P left knee arthroscopy DOS 03/15/22 Family History Family History Mother Carcinoma of colon, Onset Age: 80 Patient's mother is in good health Patient's mother is Family history of malignant neoplasm Father Family history of heart disease in male family member before age 55 Sibling Family history of heart disease in male family member before age 55 Family history of hypercholesterolemia Hypertension Family history of cardiovascular disease Grandparent Diabetes mellitus Cerebrovascular accident Other Family history of malignant neoplasm of breast Social History Social History Smoking packs per day: 1 Smoking cigarettes per day: 20.0 Years smoked: 5 Smoking pack-years: 5.00 Smoking status: Former smoker Tobacco type: cigarettes Smoking end date: 05/07/73 Alcohol intake: current Drinks per week: 0 Substance use: never Substance use type: does not use Lack of Transportation: No Lack of Food: Never True Current Housing: I Have Housing Concerned About Future Housing: No Difficulty Paying Gas/Electric Bills: No Difficulty Paying for Meds: No Currently Unemployed: No Education: High School Diploma/GED Difficulty w/ Childcare or Family Care: No Living arrangements: alone Occupation/Education: retired Gender identity (if verbalized by the patient): Female Spiritual care concerns: No Agree to blood products: Yes Exam Const: General: no acute distress and alert Nutritional Appearance: well nourished Orientation/consciousness: patient oriented x3 Limitations: no limitations HENMT: Head: normal to inspection Eyes: EOM: EOMs intact bilaterally Chest: Chest palpation & inspection: normal inspection of the chest Resp: Effort & Inspection: normal respiratory effort Auscultation: clear to auscultation bilaterally Cardio: Rate: tachycardic Rhythm: regular rhythm Heart sounds: no murmurs GI: GI Palp: Yes Soft to palpation, No Tenderness to palpation present (GI), No Guarding due to palpation present (GI) and No Rigid due to palpation Auscultation: normal bowel sounds Skin: General skin exam: normal color Rashes: no rashes Wounds: no wounds Neuro: General: patient oriented x3, moves all extremities and CN's II-XI intact bilaterally Cranial nerves: Yes Nystagmus not present Speech: collins l speech Extrem: General: normal to inspection Psych: Affect: Anxious affect present Other: and tearful. states she is scared Course Reevaluation(s) Reevaluation #1: PAtient blood pressure has decrease with any intervention. labs unremarkable except d dimer slightly elevated. PE low risk d dimer normal when age adjusted so no CT scan. Patient does not have chest pain , sob, heart racing now. She will start her amlodipine and call PCP to followup . Date: 03/03/24 Time: 12:15 Vital Signs Vital signs: Vital Signs Temperature 98.0 F 03/03/24 07:28 Pulse Rate 111 H 03/03/24 07:28 Respiratory Rate 20 03/03/24 07:28 Blood Pressure 206/120 H 03/03/24 07:28 Pulse Oximetry 99 03/03/24 07:28 Oxygen Delivery Room Air 03/03/24 07:28 Temperature 98.0 F 03/03/24 07:28 Pulse Rate 61 03/03/24 12:59 Respiratory Rate 18 03/03/24 12:59 Blood Pressure 166/85 H 03/03/24 12:59 Pulse Oximetry 99 03/03/24 12:59 Oxygen Delivery Room Air 03/03/24 07:28 Medical Decision Making MDM Narrative Medical decision making narrative: PAtient presents with palpitations, no chest pain. Appears extremely anxious. known to have hypertension. no chest pain. no high concern for PE, D dimer normal when age adjusted. Differential Diagnosis Differential Diagnosis: anxiety, hypertension, ACS, palpitations, arrhythmia, Vital Signs Vital Signs: Vital Signs Temperature 98.0 F 03/03/24 07:28 Pulse Rate 111 H 03/03/24 07:28 Respiratory Rate 20 03/03/24 07:28 Blood Pressure 206/120 H 03/03/24 07:28 Pulse Oximetry 99 03/03/24 07:28 Oxygen Delivery Room Air 03/03/24 07:28 Temperature 98.0 F 03/03/24 07:28 Pulse Rate 61 03/03/24 12:59 Respiratory Rate 18 03/03/24 12:59 Blood Pressure 166/85 H 03/03/24 12:59 Pulse Oximetry 99 03/03/24 12:59 Oxygen Delivery Room Air 03/03/24 07:28 Lab Data Lab results reviewed: Yes I reviewed the patient's lab results. 03/03/24 07:48 03/03/24 07:47 Labs: Lab Results 03/03/24 03/03/24 03/03/24 Range/Units 07:47 07:48 10:58 WBC 4.2 L (4.5-10.0) K/mm3 RBC 3.96 L (4.2-5.4) M/mm3 Hgb 11.5 L (12.0-15.0) g/dL Hct 36.0 L (37.0-47.0) % MCV 90.9 (80-100) fl MCH 29.0 (26-34) pg MCHC 31.9 L (32-36) g/dl RDW 15.1 H (11.5-14.5) % Plt Count 300 (150-375) k/mm3 MPV 10.2 (7.4-10.4) fl Immature Gran % (Auto) 0.5 (0-0.5) % Neut % (Auto) 64.7 (45.5-73.1) % Lymph % (Auto) 22.9 (18.3-44.2) % [place] % (Auto) 8.2 (2.6-8.5) % Eos % (Auto) 2.7 (0-4.4) % Baso % (Auto) 1.0 (0.2-1.2) % Lymph # (Auto) 0.95 (0.9-3.2) K/mm3 [place] # (Auto) 0.3 (0.1-0.6) K/mm3 Eos # (Auto) 0.1 (0-0.3) K/mm3 Baso # (Auto) 0.0 (0.0-0.1) K/mm3 Abs Immat Gran (auto) 0.02 (0.00-0.031) K/mm3 Absolute Neuts (auto) 2.7 (1.3-6.7) K/mm3 Absolute Nucleated RBC 0.000 (0.0-0.012) K/mm3 Nucleated RBC % 0.0 (0.0-0.2) % PT 15.3 H Cancelled (11.1-14.7) Seconds INR 1.2 Cancelled APTT 32.4 Cancelled (22.3-36.8) Seconds D-Dimer 0.61 H (<0.48) ug/mL Sodium 141 (137-145) mmol/L Potassium 3.7 (3.4-5.0) mmol/L Chloride 105 (98-107) mmol/L Carbon Dioxide 27 (22-30) mmol/L Anion Gap 9 (4-12) mmol/L BUN 15 (7-17) mg/dL Creatinine 0.70 (0.7-1.0) mg/dL Estim Creat Clear Calc 66 ml/min Estimated GFR > 60 (59 - ) Glucose 109 (65-110) mg/dL Calcium 9.6 (8.4-10.2) mg/dL Magnesium 1.8 (1.6-2.3) mg/dL Total Bilirubin 0.4 (0.2-1.3) mg/dL AST 24 (14-36) U/L ALT 16 (6-35) U/L Alkaline Phosphatase 63 (38-126) U/L Troponin I < 0.012 0.030 D (0.000-0.034) ng/mL Total Protein 8.0 (6.3-8.2) g/dL Albumin 4.3 (3.5-5.1) g/dL Lipase 132 (23-300) U/L TSH (Reflex) 2.480 (0.465-4.68) uIU/mL Imaging Data Radiologist's impression: ITS Impressions Chest X-Ray 03/03/24 08:37 IMPRESSION: 1. Moderate-sized hiatal hernia. ECG Data EKG #1: Attestation: I personally reviewed and interpreted this ECG as follows: ECG completion date: 03/03/24 ECG completion time: 11:25 EKG Interpretation: normal rate (61), sinus rhythm, no ST changes and left axis Discharge Plan Discharge Clinical Impression: Palpitations Hypertension Qualifiers: Hypertension type: unspecified Qualified Code(s): I10 - Essential (primary) hypertension Patient Disposition: Home, Self-Care Condition: Stable Instructions: Antibiotic Form, Heart Palpitations (ED), Chronic Hypertension (ED) Additional Instructions: REturn to ER if your symptoms worsen. call your primary care provider for further evaluation. Prescriptions: No Action cholecalciferol (vitamin D3) 2,000 unit capsule 2,000 unit PO DAILY mecobalamin (vitamin B12) 1,000 mcg lozenge 1,000 mcg PO DAILY Rx Instructions: allow to dissolve in mouth OR may chew lightly before swallowing losartan 50 mg tablet 50 mg PO DAILY Qty: 90 1RF Rx Instructions: TAKES IN AM trazodone 50 mg tablet 50 mg PO QHS PRN (Reason: sleep) Qty: 60 0RF alprazolam 0.25 mg tablet 0.25 mg PO BID PRN (Reason: anxiety) Qty: 60 0RF metoprolol succinate 25 mg tablet extended release 24 hr 25 mg PO DAILY Qty: 90 1RF pantoprazole 40 mg tablet,delayed release (DR/EC) 40 mg PO QAM Qty: 90 1RF amlodipine 10 mg tablet 10 mg PO DAILY Qty: 90 1RF Hold Instructions: .Provider Order metformin 500 mg tablet extended release 24 hr 500 mg PO DAILY Qty: 90 3RF atorvastatin 10 mg tablet 10 mg PO QHS Qty: 90 1RF Follow-up/Referrals: Hermelinda Michel MD [Primary Care Provider] -
[2024-03-03 08:04] LABS: Alanine Aminotransferase 16 U/L (6-35); Albumin Level 4.3 g/dL (3.5-5.1); Alkaline Phosphatase 63 U/L (38-126); Anion Gap 9 mmol/L (4-12); Aspartate Amino Transferase 24 U/L (14-36); Bilirubin,Total 0.4 mg/dL (0.2-1.3); Blood Urea Nitrogen 15 mg/dL (7-17); Calcium 9.6 mg/dL (8.4-10.2); Carbon Dioxide 27 mmol/L (22-30); Chloride 105 mmol/L (98-107); Estimated CRCL calculation 66 ml/min; Estimated Glomerular Filt Rate > 60; Glucose 109 mg/dL (65-110); Lipase 132 U/L (23-300); Potassium 3.7 mmol/L (3.4-5.0); Sodium 141 mmol/L (137-145)
[2024-03-03 08:05] LABS: Magnesium 1.8 mg/dL (1.6-2.3)
[2024-03-03 08:10] LABS: Eosinophils Absolute Auto 0.1 K/mm3 (0-0.3); Eosinophils Percent Auto 2.7 % (0-4.4); Hemoglobin 11.5 g/dL (12.0-15.0); Immature Granulocyte Absolute 0.02 K/mm3 (0.00-0.031); Immature Granulocyte Percent A 0.5 % (0-0.5); Lymphocytes Absolute Auto 0.95 K/mm3 (0.9-3.2); Lymphocytes Percent Auto 22.9 % (18.3-44.2); Mean Corpuscular HGB Conc 31.9 g/dl (32-36); Mean Corpuscular Volume 90.9 fl (80-100); Mean Platelet Volume 10.2 fl (7.4-10.4); Monocytes Absolute Auto 0.3 K/mm3 (0.1-0.6); Monocytes Percent Auto 8.2 % (2.6-8.5); Neutrophils Absolute Auto 2.7 K/mm3 (1.3-6.7); Neutrophils Percent Auto 64.7 % (45.5-73.1); Platelet Count Result 300 k/mm3 (150-375); Red Blood Count 3.96 M/mm3 (4.2-5.4); Red Cell Distribution Width 15.1 % (11.5-14.5); White Blood Count 4.2 K/mm3 (4.5-10.0)
[2024-03-03 08:16] LABS: Troponin I < 0.012 ng/mL (0.000-0.034)
[2024-03-03 08:29] LABS: INR 1.2; Prothrombin Time 15.3 Seconds (11.1-14.7)
[2024-03-03 08:31] LABS: Partial Thromboplastin Time 32.4 Seconds (22.3-36.8)
[2024-03-03 08:34] LABS: D Dimer 0.61 ug/mL (<0.48)
[2024-03-03] MEDS: LOSARTAN POTASSIUM 25 MG TABLET PO (09:13)
--- NOTE | 2024-03-03 11:14 | ECG_ITS ---
Test Date: 2024-03-03 11:25:20 Measurements Intervals [place] Rate: 61 P: 22 VT: 150 QRS: -45 QRSD: 109 T: -16 QT: 414 QTc: 419 Interpretive Statements SINUS RHYTHM WITH SINUS ARRHYTHMIA PATTERN CONSISTENT WITH PULMONARY DISEASE LEFT ANTERIOR FASCICULAR BLOCK [QRS AXIS <= -45, QR IN I, RS IN II] MODERATE VOLTAGE CRITERIA FOR LVH, CONSIDER NORMAL VARIANT [MEETS CRITERIA IN ONE OF: R(aVL), S(V1), R(V5), R(V5/V6)+S(V1)] Compared to ECG 03/03/2024 07:46:16 Left anterior fascicular block now present Left-axis deviation no longer present ST (T wave) deviation no longer present Electronically Signed On 03-03-2024 12:21:40 CDT by Ghulam Springer M.D.
== END 2024-03-03 13:01 | disposition home or self-care (01) ==
PROVIDERS: Emergency Provider General Practice; PCP Family Medicine
DX: R00.2 Palpitations (principal); I10 Essential (primary) hypertension; R94.31 Abnormal electrocardiogram [ECG] [EKG]; F41.9 Anxiety disorder, unspecified; K21.9 Gastro-esophageal reflux disease without esophagitis; R07.9 Chest pain, unspecified
CPT/HCPCS: 36415; 71046; 80053; 83690; 83735; 84443; 84484; 85025; 85380; 85610; 85730; 93005; 99284; A9270

== ENCOUNTER 2024-04-08 12:24 | Outpatient (CLI) | payer MEDICARE, SELFPAY ==
--- NOTE | 2024-04-08 12:37 | ECHO_ITS ---
Patient Info Name: Luis Bruner Age: 78 years : 1945 Gender: Female Ht: 69 in Wt: 193 lbs BSA: 2.08 m2 HR: 85 bpm BP: 133 / 76 mmHg Technical Quality: Fair Exam Date: 04/08/2024 12:53 PM Exam Location: Echo Lab Patient Status: Outpatient Admit Date: 04/08/2024 Staff Ordering Physician: Hermelinda Michel MD Director Of Food And Beverage Services: Rupinder Avery RDCS Attending Provider: Hermelinda Michel MD Exam Type: CA echo doppler color flow Study Info Indications I10 - Essential (primary) hypertension Complete two-dimensional, color flow and Doppler transthoracic echocardiogram is performed. Summary 1. Complete two-dimensional, color flow and Doppler transthoracic echocardiogram is performed. 2. Left ventricular chamber dimension is normal. 3. Left ventricular systolic function is normal, estimated at 60-65%. 4. There is mild concentric increased left ventricular wall thickness. 5. The left ventricular diastolic function is grade I diastolic dysfunction. 6. E/e' 26 is elevated. 7. Left atrial chamber dimension is mildly enlarged. 8. There is mild aortic valve sclerosis. 9. There is trace mitral valve regurgitation. 10. There is mild tricuspid valve regurgitation. 11. No pulmonary hypertension, estimated pulmonary arterial systolic pressure is 27 mmHg. Left Ventricle E/e' 26 is elevated. Left ventricular chamber dimension is normal. Left ventricular systolic function is normal, estimated at 60-65%. There is mild concentric increased left ventricular wall thickness. The left ventricular diastolic function is grade I diastolic dysfunction. Right Ventricle Right ventricular systolic function is normal and with normal TAPSE 2.0 cm. Right ventricular chamber dimension is normal. Left Atria Left atrial chamber dimension is mildly enlarged. Right Atria Right atrial chamber dimension is normal. Aortic Valve The aortic valve is trileaflet. There is mild aortic valve sclerosis. There is no aortic valve stenosis. There is no aortic valve regurgitation. Pulmonic Valve There is no pulmonic regurgitation. Mitral Valve There is no mitral valve stenosis. There is trace mitral valve regurgitation. Tricuspid Valve There is mild tricuspid valve regurgitation. No pulmonary hypertension, estimated pulmonary arterial systolic pressure is 27 mmHg. Pericardium/Pleural There is no pericardial effusion. Inferior Vena Cava Normal inferior vena cava with >50% collapse upon inspiration consistent with normal right atrial pressure, 5 mmHg. Aorta The aortic root size at the sinus of Valsalva is normal. Left Ventricular Outflow Tract Name Value Normal LVOT 2D LVOT Diameter 1.9 cm LVOT Doppler LVOT Peak Gradient 4 mmHg LVOT Mean Gradient 2 mmHg LVOT VTI 21 cm LVOT VTI/AV VTI Ratio 0.8 LVOT Stroke Volume 60 ml LVOT CO 4.3 l/min LVOT CI 2.1 l/min/m2 Pulmonic Valve Name Value Normal PV Doppler PV Peak Gradient 2 mmHg PV Regurgitation Doppler UT Peak End Diastolic Velocity 107 cm/s Mitral Valve Name Value Normal MV Doppler MV Decel Calh[place] 468 cm/s2 MV PHT 72 ms MV Area (PHT) 3.1 cm2 4.0-5.0 MV Diastolic Function MV E Peak Velocity 116 cm/s MV A Peak Velocity 143 cm/s MV E/A 0.8 MV Decel Time 247 ms Tricuspid Valve Name Value Normal TV Regurgitation Doppler TR Peak Velocity 236 cm/s TR Peak Gradient 21 mmHg Estimated PAP/RSVP RA Pressure 5 mmHg <=5 PA Systolic Pressure 27 mmHg <36 RV Systolic Pressure 27 mmHg <36 Aorta Name Value Normal Ascending Aorta Ao Root Diameter (MM) 2.5 cm Ao Root Diam Index (MM) 1.2 cm/m2 Aortic Valve Name Value Normal AV Doppler AV Peak Velocity 138 cm/s AV Peak Gradient 8 mmHg AV Mean Gradient 4 mmHg AV VTI 26 cm AV Area (Cont Eq VTI) 2.3 cm2 >=3.0 AV Area (Cont Eq Oswaldo) 2.0 cm2 AV Regurgitation 2D LVOT Area 2.8 cm2 Ventricles Name Value Normal LV Dimensions 2D/MM IVS Diastolic Thickness (2D) 0.8 cm 0.6-1.0 IVS Diastole Thickness (MM) 0.8 cm 0.6-0.9 LVID Diastole (2D) 5.0 cm 3.8-5.2 LVID Diastole (MM) 4.8 cm 3.8-5.2 LVIW Diastolic Thickness (2D) 1.0 cm 0.6-0.9 LVIW Diastolic Thickness (MM) 1.0 cm 0.6-0.9 LVID Systole (2D) 3.4 cm 2.2-3.5 LVID Systole (MM) 3.6 cm 2.2-3.5 LVOT Diameter 1.9 cm LV Mass (2D Cubed) 156.14 g 67.00-162.00 LV Mass Index (2D Cubed) 75 g/m2 43-95 Relative Wall Thickness (2D) 0.39 LV Mass (MM Cubed) 147.32 g 67.00-162.00 LV Mass Index (MM Cubed) 71 g/m2 43-95 Relative Wall Thickness (MM) 0.41 LV Fractional Shortening/Ejection Fraction 2D/MM LV Fractional Shortening (2D) 33 % 27-45 LV Fractional Shortening (MM) 24 % 27-45 LV EF (MM Teicholz) 47 % 54-74 LV EF (2D Teicholz) 61 % 54-74 LV Diastolic Volume (4C MOD) 57 ml LV EF (4C MOD) 62 % LV Diastolic Volume (2C MOD) 64 ml LV EF (2C MOD) 64 % LV Diastolic Volume (BP MOD) 61 ml 46-106 LV Diastolic Volume Index (BP MOD) 29 ml/m2 29-61 LV Systolic Volume (BP MOD) 23 ml 14-42 LV Systolic Volume Index (BP MOD) 11 ml/m2 8-24 LV EF (BP MOD) 62 % 54-74 LV Diastolic Length (4C) 7.6 cm LV Systolic Length (4C) 6.7 cm LV Stroke Volume (4C MOD) 35 ml Atria Name Value Normal LA Dimensions LA Dimension (MM) 4.4 cm 2.7-3.8 LA Volume (4C A-L) 55 ml LA Volume (BP A-L) 50 ml RA Dimensions RA Area (4C) 11.6 cm2 <=18.0 Report Signatures
== END 2024-04-08 12:25 | disposition home or self-care (01) ==
LOC: ANHCARD 12:25
PROVIDERS: PCP Family Medicine; Visit Provider Family Medicine
DX: R06.09 Other forms of dyspnea (principal); I10 Essential (primary) hypertension
CPT/HCPCS: 93306

== ENCOUNTER 2024-07-11 09:49 | Outpatient (CLI) | payer MEDICARE, SELFPAY ==
--- NOTE | ~2024-07-11 | MM_ITS ---
EXAMINATION: MM screening [facility] BI w brianne HISTORY: Screening TECHNIQUE: Craniocaudal and mediolateral oblique 3-D tomosynthesis images were obtained and synthetic 2-D images were generated. CAD analysis was submitted and interpreted. COMPARISON: 07/11/2023 and dating back to 05/03/2020 BREAST PARENCHYMAL COMPOSITION: The breasts are heterogeneously dense, which may obscure small masses . FINDINGS: Punctate calcifications are detected bilaterally, stable and benign in appearance. Stable parenchymal pattern without suspicious microcalcifications, architectural distortion, discrete masses or significant asymmetry. IMPRESSION: 1. No mammographic/tomographic evidence of malignancy. 2. Recommend routine screening mammography in one year. BI-RADS Category 2: Benign finding(s). Reviewed, dictated and finalized at location A. RONMENTAL ENGINEER
--- OUTSIDE RECORDS SUMMARY | 2024-07-11 10:28 | XMS_ITS | Clinical Summary ---
Author Organization [facility] Address [facility] [place] [address] Care Team Providers Care Independent Crop Consultant Name Role Phone Unavailable Primary Care Provider Unavailabl e Source Comments [facility],non-owned Affiliates and Associated Physician Practices is amultiple site organization consisting of ambulatory clinics and hospital sitesin [place], [place], [place] and [place]. This disclosure is being madepursuant to the Care Everywhere program and may not contain all information available regarding this patient. Last updated 18.[facility] Allergies Active Allergy Reactions Criticality Noted Date Comments Penicillins Swelling,Unknown 01/09/2014 Medications * Be aware that medications may not be up to date on this document. Alwaysverify current medications with the patient. Medication Sig Dispensed Refills Start Date End Date Status pantoprazole EC (Protonix) 20 MG tablet Take 2 (two) tablets by mouth 2 times daily Active losartan (Cozaar) 50 MG tablet Take 1 (one) tablet by mouth every morning 05/25/2023 Active amLODIPine (Norvasc) 5 MG tablet Take 1 (one) tablet by mouth once daily 04/02/2023 Active atorvastatin (Lipitor) 20 MG tablet Take 1 (one) tablet by mouth 01/11/2023 Active metoprolol succinate XL 24hr (Toprol XL) 25 MG tablet 06/26/2023 Active Social History Tobacco Use Types Packs/Day Years Used Date Smoking Tobacco: Unknown Tobacco Cessation:Counseling Given: Not Answered PHQ-2 Answer Date Recorded Patient Health Questionnaire-2 Score 0 06/20/2023 Sex and Gender Information Value Date Recorded Sex Assigned at Not on file Gender Identity Not on file Sexual Orientation Not on file Plan of Treatment Health Maintenance Due Date Last Done Comments BONE DENSITY TESTING 1945 HEPATITIS C SCREENING 11/15/1964 DTAP/TDAP/TD VACCINES (1 - Tdap) 1965 PNEUMOCOCCAL VACCINE 50+ (1 of 1 - PCV) 1996 ZOSTER VACCINE (1 of 2) 1996 Respiratory Syncytial Virus (RSV) Vaccine Pt: or over 60 yrs (1 - 1-dose 75+ series) 2021 COVID-19 VACCINE (1 - 2023-2 5 season) 2024 INFLUENZA VACCINE (#1) 2024 DEPRESSION SCREENING 05/07/2024 06/27/2023 MEDICARE AWV CALENDAR YEAR 2024 HEPATITIS B VACCINE Aged Out No longe r eligible based on patient's age to complete this topic HIB VACCINE Aged Out No longer eligi ble based on patient's age to complete this topic HPV VACCINE Aged Out No longer eligi ble based on patient's age to complete this topic MENINGOCOCCAL (Group B) VACCINE Aged Out No longer eligible based on patient's age to complete this topic MENINGOCOCCAL VACCINE Aged Out No jerome sherice eligible based on patient's age to complete this topic
--- OUTSIDE RECORDS SUMMARY | 2024-07-11 10:28 | XMS_ITS | Referral Summary ---
Author Organization [facility] [address] Address [address] [place] [address] Care Team Providers Care Station Engineer Name Role Phone Anna Michel MD Primary Care Provider Allergies Active Allergy Reactions Criticality Noted Date Comments Amoxicillin Unknown 03/06/2017 Medications amLODIPine (NORVASC) 5 mg tablet take 1 tablet by oral route every day 30 0 5 Active gabapentin (NEURONTIN) 100 mg capsule Take 1 capsule (100 mg total) by mouth nightly. 30 capsule 2 9 Active triamcinolone (KENALOG) 0.1 % ointmentIndicati ons:Eczema, unspecified type Apply topically 2 (two) times a day as needed for rash 454 g 3 9 Active losartan (COZAAR) 25 mg tablet Take 50 mg by mouth daily Active pantoprazole DR (PROTONIX) 20 mg EC tablet Take 40 mg by mouth 2 (two) times a day Active atorvastatin (LIPITOR) 20 mg tablet TAKE ONE TABLET BY MOUTH ONCE DAILY 90 tablet 1 0 Active clobetasoL (TEMOVATE) 0.05 % cream APPLY A THIN LAYER TO AFFECTED AREA ON LEFT LEG TWICE A DAY 30 g 1 4 Active Active Problems Problem Noted Date Diagnosed Date Essential hypertension 05/31/2019 Gastroesophageal reflux disease without esophagi tis 05/31/2019 Family history of coronary artery disease 2019 Hypercholesteremia 05/31/2019 Precordial pain 05/28/2019 Social History Tobacco Use Types Packs/Day Years Used Date Smoking Tobacco: Never Smokeless Tobacco: Never Tobacco Cessation:Counseling Given: Yes Alcohol Use Standard Drinks/Week Comments Not Currently 0 (1 standard drink = 0.6 oz pur e alcohol) Personal Safety Answer Date Recorded Getting School Help Needed Not on file 04/25 Comments Unknown Sex and Gender Information Value Date Recorded Sex Assigned at Not on file Legal Sex Female 11:47 PM LOT ASSOCIATE Gender Identity Female 06/02/2019 9:44 PM LOT ASSOCIATE Sexual Orientation Not on file Last Filed Vital Signs Vital Sign Reading Time Taken Comments Blood Pressure 144/80 12/22/2019 9:00 AM CDT Pulse 77 12/22/2019 9:00 AM CDT Temperature - - Respiratory Rate - - Oxygen Saturation 98% 12/22/2019 9:00 AM CDT Inhaled Oxygen Concentration - - Weight 87.5 kg (193 lb) 12/22/2019 9:00 AM CDT Height 177.8 cm (5' 10 ) 12/22/2019 9:00 AM CDT Body Mass Index 27.69 12/22/2019 9:00 AM CDT Plan of Treatment Not on file Insurance [facility] MDCR HMO REF [facility] MEDICARE Address: [facility] [address] [place] [address] MEDICARE SOLUTIONS Care Teams Station Engineer Relationship Specialty Start Date End Date Anna Michel MD PCP - General Family Practice 12/22/19
--- OUTSIDE RECORDS SUMMARY | 2024-07-11 10:29 | XMS_ITS | Clinical Summary ---
Author Organization [facility] [address] Address [address] [place] [address] Care Team Providers Care Associate Dean Of Students Name Role Phone Anna Michel MD Primary [...] disease 2019 Hypercholesteremia 05/31/2019 Precordial pain 05/28/2019 Surgical History Surgery Date Site/Laterality Comments HYSTERECTOMY BLADDER REPAIR MENISCUS SURGERY Medical History Medical History Date Comments Hypertension Kidney infection GERD (gastroesophageal reflux disease) Family History Medical History Relation Name Comments Heart disease Brother 1 Quad. 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 Gender Identity Female 06/02/2019 9:44 PM FILLING AND STAPLING MACHINE OPERATOR Sexual Orientation Not on file Obstetrics History Last Filed Vital Signs Vital Sign Reading [...] 12/22/2019 9:00 AM CDT Plan of Treatment Health Maintenance Due Date Last Done Comments Depression Screening 1946 Fall Risk Assessment 1945 Hepatitis C Screening 1945 Osteoporosis Screening-Bone Density Scan 1946 DTaP/Tdap/Td Vaccine (1 - Tdap) 1957 Hepatitis B Screening 1964 Pneumococcal vaccine 65+ (1 of 1 - PCV) 1996 Zoster Vaccine (1 of 2) 1996 Well Visit 65+ 11/21/2011 Influenza Vaccine (#1) 2024 9, 02/04/2018, 01/27/2018, Additional history exists Insurance [facility] MDCR HMO REF [place] [id number] MEDICARE SOLUTIONS [place] [id number] Care Teams Associate Dean Of Students Relationship Specialty Start Date End Date Anna Michel MD PCP - General Family Practice 12/22/19
--- OUTSIDE RECORDS SUMMARY | 2024-07-11 10:29 | XMS_ITS | Patient Health Summary ---
Author Organization [facility] Address [address] [place] [address] Care Team Providers Care Environmental Technology Professor Name Role Phone Unavailable Primary Care Provider Unavailabl e Note from [facility],non-owned Affiliates and Associated Physician Practices is amultiple site organization consisting of ambulatory clinics and hospital sitesin [place], [place], [place] and [place]. This disclosure is being madepursuant to the Care Everywhere program and may not contain all information available regarding this patient. Last updated 18.[facility] Allergies * Penicillins(Swelling,Unknown) Medications * Be aware that medications may not be up to date on this document. Alwaysverify current medications with the patient. * pantoprazole EC (Protonix) 20 MG tablet Take 2 (two) tablets by mouth 2 times daily * losartan (Cozaar) 50 MG tablet(Started 05/25/2023) Take 1 (one) tablet by mouth every morning * amLODIPine (Norvasc) 5 MG tablet(Started 04/02/2023) Take 1 (one) tablet by mouth once daily * atorvastatin (Lipitor) 20 MG tablet(Started 01/11/2023) Take 1 (one) tablet by mouth * metoprolol succinate XL 24hr (Toprol XL) 25 MG tablet(Started 06/26/2023) Social History Tobacco Use Types Packs/Day Years Used Date Smoking Tobacco: Unknown Tobacco Cessation:Counseling Given: Not Answered PHQ-2 Answer Date Recorded Patient Health Questionnaire-2 Score 0 06/20/2023 Sex and Gender Information Value Date Recorded Sex Assigned at Not on file Gender Identity Not on file Sexual Orientation Not on file Procedures * XR SHOULDER RIGHT 2VW OR MORE(Performed 06/27/2023) Performed for Chronic right shoulder pain Results * XR SHOULDER RIGHT 2VW OR MORE (06/27/2023 2:31 PM CANVAS CUTTER HAND) Narrative [facility] [place] [address] - 06/27/2023 2:31 PM CANVAS CUTTER HAND Please see progress note in Epic for results. Germaine Patel MD DIAGNOSTIC IMAGING ORDERABLES [facility] [place] [address]
--- OUTSIDE RECORDS SUMMARY | 2024-07-11 10:29 | XMS_ITS | Patient Health Record ---
Author Organization [facility] Address [address] [place] [address] Care Team Providers Care Driller And Broacher Name Role Phone Maame Mercedes MD Primary Care Provider Chuck Canseco Unavailable [phone] Allergies Allergen (clinical drug ingredient) Drug/Non Drug Allergy documented on EMR Reaction Allergy Type Onset Date Status amoxicillin Amoxicillin Unknown Drug Allergy Act jackson Reason For Referral No Information Medications Medication SIG (Take, Route, Frequency, Duration) Notes Start Date End Date Status Multivitamin Active Aspirin 81 Active Pantoprazole Sodium 40 MG 1 tablet Orally Once a day Active Probiotic Active Losartan Potassium A ctive amLODIPine Besylate Active Social History Tobacco Use: Social History Observation Description Date Details (start date - stop date) Never Smoker NA - NA Tobacco Use/Smoking Question Answer Notes Are you a nonsmoker Problems Problem Type SNOMED Code ICD Code Onset Dates Problem Status W/U Status Risk Notes Problem 033466980 GERD (gastroesopha geal reflux disease) (K21.9) Active confirmed She has been on pantoprazole 40 mg daily long-term for management of reflux symptoms. Problem 376448676 History of colon polyps (Z86.010) Active confirmed Her last colonoscopy in 2017 revealed a small polyp and she was advised to follow-up in 5 years. Problem 55667826 Chest pain (R07.9) Active confirmed Problem 453714787 H. pylori infection (A04.8) Active confirmed She has been having chest discomfort since March. She tried switching to Prevacid, but did not have any improvement in symptoms. She had a breath test for H. pylori, which was positive and she was subsequently treated with omeprazole, Flagyl, tetracycline, and Pepto-Bismol. She felt deathly ill during treatment and had terrible diarrhea. Since finishing the full course of antibiotics her bowel habits have returned to normal, but she continues to have chest discomfort that radiates to the left rib cage. Differential diagnosis includes H. pylori, peptic ulcer, esophagitis, cardiac causes, or others. Plan Of Treatment Pending Test Test Name Order Date Upper Endoscopy 05/14/2019 Insurance Providers Payer Name Payer Address Payer Phone Subscriber Number Group Number Insured Name Patient Relationship to Insured Coverage Start Date Coverage End Date [facility] Medicare Advantage HMO-POS [address] [address] [place] [address] [id number] Luis Bruner Self - patient is the insured Medical (General) History Medical History History ICD Code GERD Hypertension H. Pylori Colon Polyps Surgical History Surgery Date(Month/Year) Hysterectomy/ Bladder Repair 1995 Bladder Repair 1997 Meniscus Repair 2004 Colonoscopy 2017 Upper Endoscopy 2003
--- OUTSIDE RECORDS SUMMARY | 2024-07-11 10:29 | XMS_ITS | Referral Summary ---
Author Organization [facility] Address [facility] [place] [address] Care Team Providers Care Developmental Electronics Assembler Name Role Phone Unavailable Primary Care Provider Unavailabl e Source Comments [facility],non-owned Affiliates and Associated Physician Practices is amultiple site organization consisting of ambulatory clinics and hospital sitesin [place], [place], [place] and [place]. This disclosure is being madepursuant to the Care Everywhere program and may not contain all information available regarding this patient. Last updated 18.[facility] [employer] Allergies Active Allergy Reactions Criticality Noted Date [...] Orientation Not on file Plan of Treatment Not on file
== END 2024-07-11 09:50 | disposition home or self-care (01) ==
LOC: ANHIMG 09:50
PROVIDERS: PCP Family Medicine; Visit Provider Family Medicine
DX: Z12.31 Encounter for screening mammogram for malignant neoplasm of breast (principal)
CPT/HCPCS: 77063; 77067

== ENCOUNTER 2024-07-28 09:49 | Outpatient (CLI) | payer MEDICARE, SELFPAY ==
--- OUTSIDE RECORDS SUMMARY | 2024-07-28 11:05 | XMS_ITS | Clinical Summary ---
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
--- OUTSIDE RECORDS SUMMARY | 2024-07-28 11:05 | XMS_ITS | Patient Health Record ---
Author Organization [facility] Address [address] [place] [address] Care Team Providers Care Cash Room Clerk Name Role Phone Maame Mercedes MD Primary Care Provider Chuck Canseco Unavailable [phone] Allergies Allergen (clinical drug ingredient) Drug/Non Drug [...] Problem Status W/U Status Risk Notes Problem [id number] GERD (gastroesopha geal reflux disease) (K21.9) Active confirmed She has been on pantoprazole 40 mg daily long-term for management of reflux symptoms. Problem 996190696 History of colon polyps (Z86.010) Active confirmed Her last colonoscopy in 2017 revealed a small polyp and she was advised to follow-up in 5 years. Problem 74832509 Chest pain (R07.9) Active confirmed Problem 988227944 H. pylori infection (A04.8) Active confirmed She [...] Insured Coverage Start Date Coverage End Date [facility] Medicare Advantage HMO-POS [address] [address] [place] [address] [id number] Luis Bruner Self - patient is the insured Medical (General) History Medical History History ICD Code GERD Hypertension H. Pylori Colon Polyps Surgical History Surgery Date(Month/Year) Hysterectomy/ Bladder Repair 1995 Bladder Repair 1997 Meniscus Repair 2004 Colonoscopy 2017 Upper Endoscopy 2003
--- OUTSIDE RECORDS SUMMARY | 2024-07-28 11:05 | XMS_ITS | Clinical Summary ---
Author Organization [facility] [employer] Address [facility] [place] [address] Care Team Providers Care Benefit Director Name Role Phone Unavailable Primary Care Provider Unavailabl e Source Comments [facility],non-owned Affiliates and Associated Physician Practices is amultiple site organization consisting of ambulatory clinics and hospital sitesin [place], [place], [place] and [place]. This disclosure is being madepursuant to the Care Everywhere program and may not contain all information available regarding this patient. Last updated 18.[facility] [employer] Allergies Active Allergy Reactions Criticality Noted Date [...] to complete this topic MENINGOCOCCAL (Group B) VACC INE SHARED DECISION-MAKING Aged Out No longer eligibl e based on patient's age to complete this topic MENINGOCOCCAL GROUPS A/C/Y/W VACCINE Aged Out No longer eligible b ased on patient's age to complete this topic
--- OUTSIDE RECORDS SUMMARY | 2024-07-28 11:05 | XMS_ITS | Referral Summary ---
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
[2024-07-28 14:54] LABS: Basophils Absolute Auto 0.1 K/mm3 (0.0-0.1); Basophils Percent Auto 1.1 % (0.2-1.2); Eosinophils Absolute Auto 0.1 K/mm3 (0-0.3); Eosinophils Percent Auto 2.5 % (0-4.4); Hematocrit 31.6 % (37.0-47.0); Hemoglobin 9.6 g/dL (12.0-15.0); Immature Granulocyte Absolute 0.01 K/mm3 (0.00-0.031); Immature Granulocyte Percent A 0.2 % (0-0.5); Lymphocytes Absolute Auto 0.84 K/mm3 (0.9-3.2); Lymphocytes Percent Auto 19.3 % (18.3-44.2); Mean Corpuscular HGB Conc 30.4 g/dl (32-36); Mean Corpuscular Hemoglobin 26.7 pg (26-34); Mean Platelet Volume 10.3 fl (7.4-10.4); Monocytes Absolute Auto 0.4 K/mm3 (0.1-0.6); Monocytes Percent Auto 8.7 % (2.6-8.5); Neutrophils Percent Auto 68.2 % (45.5-73.1); Platelet Count Result 356 k/mm3 (150-375); Red Blood Count 3.59 M/mm3 (4.2-5.4); White Blood Count 4.4 K/mm3 (4.5-10.0)
[2024-07-28 15:20] LABS: Hemoglobin A1C 6.3 % (<5.7)
[2024-07-28 16:17] LABS: Creatinine Urine 42.7 mg/dL
[2024-07-28 16:32] LABS: MALB Creatinine Ratio < 14.1 mg/g (0-30); Microalbumin Urine Random < 6.0 mg/L (0-16.7)
[2024-07-28 16:35] LABS: Alanine Aminotransferase 17 U/L (6-35); Albumin Level 4.2 g/dL (3.5-5.1); Alkaline Phosphatase 61 U/L (38-126); Anion Gap 10 mmol/L (4-12); Aspartate Amino Transferase 41 U/L (14-36); Bilirubin,Total 0.6 mg/dL (0.2-1.3); Blood Urea Nitrogen 14 mg/dL (7-17); Calcium 9.3 mg/dL (8.4-10.2); Carbon Dioxide 27 mmol/L (22-30); Chloride 105 mmol/L (98-107); Cholesterol 158 mg/dL (0-200); Estimated Glomerular Filt Rate > 60; Glucose 87 mg/dL (65-110); HDL Direct 65 mg/dL; Potassium 4.4 mmol/L (3.4-5.0); Sodium 142 mmol/L (137-145); Triglycerides 44 mg/dL (<150)
[2024-07-28 16:48] LABS: LDL Cholesterol Direct 57 mg/dL
[2024-07-29 10:19] LABS: Iron 50 ug/dL (37-170)
[2024-07-29 10:29] LABS: Percent Iron Saturation 13 % (20-50)
[2024-07-29 10:56] LABS: Ferritin 8.49 ng/mL (11.1-264)
[2024-07-29 11:11] LABS: Vitamin B12 > 1000.0 pg/mL (239-931)
== END 2024-07-28 09:50 | disposition home or self-care (01) ==
LOC: ANHGOSHLAB 09:50
PROVIDERS: PCP Family Medicine; Visit Provider Nurse Practitioner Family
DX: E11.9 Type 2 diabetes mellitus without complications (principal); I10 Essential (primary) hypertension; E55.9 Vitamin D deficiency, unspecified; E78.5 Hyperlipidemia, unspecified; D64.9 Anemia, unspecified
CPT/HCPCS: 36415; 80053; 80061; 82043; 82306; 82607; 82728; 83036; 83540; 83550; 84443; 85025

== ENCOUNTER 2024-08-01 01:03 | Day surgery (SDC) | payer MEDICARE, SELFPAY ==
[2024-07-31 10:10] VITALS: BMI 28.8
--- NOTE | 2024-07-31 10:37 | PC.NURSE ---
Pt has hx of constipation and had poor prep at last colonoscopy. Pt states has magnesium citrate at home in addition to laxative pills and miralax. Prep instructions for miralax and magnesium citrate emailed to pt.
--- OUTSIDE RECORDS SUMMARY | 2024-08-01 01:06 | XMS_ITS | Clinical Summary ---
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 Gender Identity Female 06/02/2019 9:44 PM RECEIVER Sexual Orientation Not on file Obstetrics History [...] 9, 02/04/2018, 01/27/2018, Additional history exists Insurance [facility] MDCR HMO REF [facility] MEDICARE Address: [address] [place], [place] [phone] [facility] MEDICARE ADVANTAGE [facility] Address: [address] [place], [place] [phone] Care Teams Brake Operator Heavy Duty Relationship Specialty Start Date End Date Anna Michel MD PCP - General Family Practice 12/22/19
--- OUTSIDE RECORDS SUMMARY | 2024-08-01 01:06 | XMS_ITS | Patient Health Record ---
Author Organization [employer] Address [address] [place] [address] Care Team Providers Care Flight Attendant/Inflight Manager Name Role Phone Maame Mercedes MD Primary Care Provider Chuck Canseco Unavailable [phone] Allergies Allergen (clinical drug ingredient) Drug/Non Drug [...] Problem Status W/U Status Risk Notes Problem [id number] GERD (gastroesopha geal reflux disease) (K21.9) Active confirmed She has been on pantoprazole 40 mg daily long-term for management of reflux symptoms. Problem 308687256 History of colon polyps (Z86.010) Active confirmed Her last colonoscopy in 2017 revealed a small polyp and she was advised to follow-up in 5 years. Problem 25809515 Chest pain (R07.9) Active confirmed Problem 315596582 H. pylori infection (A04.8) Active confirmed She [...] Insured Coverage Start Date Coverage End Date [facility] Medicare Advantage HMO-POS [address] [address] [place] [address] [id number] Luis Bruner Self - patient is the insured Medical (General) History Medical History History ICD Code GERD Hypertension H. Pylori Colon Polyps Surgical History Surgery Date(Month/Year) Hysterectomy/ Bladder Repair 1995 Bladder Repair 1997 Meniscus Repair 2004 Colonoscopy 2017 Upper Endoscopy 2003
--- OUTSIDE RECORDS SUMMARY | 2024-08-01 01:06 | XMS_ITS | Clinical Summary ---
Author Organization [facility] [employer] Address [facility] [place] [address] Care Team Providers Care Electrical Control Assembler Name Role Phone Unavailable Primary Care Provider Unavailabl e Source Comments [facility] [employer],non-owned Affiliates and Associated Physician Practices is amultiple site organization consisting of ambulatory clinics and hospital sitesin [place], [place], [place] and [place]. This disclosure is being madepursuant to the Care Everywhere program and may not contain all information available regarding this patient. Last updated 18.[facility] [employer] Allergies Active Allergy Reactions Criticality Noted Date [...]
--- OUTSIDE RECORDS SUMMARY | 2024-08-01 01:06 | XMS_ITS | Referral Summary ---
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 MDCR HMO REF [facility] MEDICARE ADVANTAGE Care Teams Medical Imaging Technologist Relationship Specialty Start Date End Date Anna Michel MD PCP - General Family Practice 12/22/19
[2024-08-01 08:09] VITALS: BP 143/75; PULSE 97; RESP 20; TEMP 35.8; O2SAT 98
[2024-08-01] MEDS: LACTATED RINGERS 1,000 ML 150 ML IV CONT (08:23)
[2024-08-01 08:25] LABS: Glucose Point of Care 101 mg/dl (65-105)
--- NOTE | 2024-08-01 08:25 | P.PNAN_ITS ---
Anes - Initial Pre Proc Eval Procedure: Operation Date: 08/01/24 09:00 Proposed Procedures p Colonoscopy - Royer Palencia MD Date/Time: 08/01/24 08:25 Surgeon: Royer Palencia MD Pre Op Diagnosis: Anemia, unspecified Patient Data Age: 78 Gender: F Height: 1.77 m Weight: 84.5 kg Last Vital Signs Temp 35.8 C L 08/01/24 08:09 Pulse 97 08/01/24 08:09 Resp 20 08/01/24 08:09 BP 143/75 H 08/01/24 08:09 Pulse Ox 98 08/01/24 08:09 O2 Del Method Room Air 08/01/24 08:09 Allergies Allergy/AdvReac Type Severity Reaction Status Date / Time amoxicillin Allergy Unknown Swelling Verified 08/01/24 08:06 of Lip/Tongue/Throat Antihistamines - Alkylamine AdvReac Unknown Hyperactive Verified 08/01/24 08:06 amlodipine AdvReac edema Verified 08/01/24 08:06 Home Medications ?Medication ?Instructions ?Recorded ?Confirmed ?Type cholecalciferol (vitamin D3) 50 2,000 unit PO DAILY 03/10/19 08/01/24 History mcg (2,000 unit) capsule alprazolam 0.25 mg tablet 0.25 mg PO BID PRN anxiety #60 tabs 07/05/23 07/31/24 Rx mecobalamin (vitamin B12) 1,000 1,000 mcg PO DAILY 01/29/24 08/01/24 History mcg lozenges metformin 500 mg tablet,extended 500 mg PO DAILY #90 tabs 02/04/24 08/01/24 Rx release 24 hr amlodipine 5 mg tablet 5 mg PO DAILY 03/11/24 08/01/24 History pantoprazole 40 mg tablet,delayed 40 mg PO QAM #90 tabs 05/01/24 08/01/24 Rx release atorvastatin 10 mg tablet 10 mg PO QHS #90 tabs 06/23/24 08/01/24 Rx losartan 50 mg tablet 50 mg PO DAILY #90 tabs 06/23/24 08/01/24 Rx metoprolol succinate 25 mg 25 mg PO DAILY #90 tabs 06/23/24 08/01/24 Rx tablet,extended release 24 hr trazodone 50 mg tablet 50 mg PO QHS PRN sleep #90 tabs 06/23/24 07/31/24 Rx Patient hx anesthesia problems: none Family hx anesthesia problems: none Results Review: All pre-operative results and documents have been reviewed as part of the pre- operative evaluation. [facility] Past Medical History Medical History Difficulty sleeping DJD (degenerative joint disease) Degenerative joint disease of knee Chronic venous insufficiency of lower extremity Medial meniscus tear Nausea after anesthesia Left knee injury Left knee pain Prediabetes Osteopenia Anterior dislocation of right shoulder Normal colonoscopy (~2016) Anxiety Atopic dermatitis H. pylori infection (~03/2019) Essential (primary) hypertension Hyperlipidemia GERD without esophagitis Dyspnea on exertion Surgical History Surgical History S/P left knee arthroscopy DOS 03/15/22 H/O bladder repair surgery [address] Edwards H/O lateral meniscus repair of right knee (~2004) History of total hysterectomy (~1996) Family History Family History Mother Carcinoma of colon, Onset Age: 80 Patient's mother is in good health Patient's mother is Family history of malignant neoplasm Father Family history of heart disease in male family member before age 55 Sibling Family history of heart disease in male family member before age 55 Family history of hypercholesterolemia Hypertension Family history of cardiovascular disease Grandparent Diabetes mellitus Cerebrovascular accident Other Family history of malignant neoplasm of breast Social History Social History Smoking packs per day: 1 Smoking cigarettes per day: 20.0 Years smoked: 6 Smoking pack-years: 6.00 Smoking status: Former smoker Tobacco type: cigarettes Smoking end date: 05/07/73 Alcohol intake: current Drinks per week: 0 Substance use: never Substance use type: does not use Lack of Transportation: No Lack of Food: Never True Current Housing: I Have Housing Concerned About Future Housing: No Difficulty Paying Gas/Electric Bills: No Difficulty Paying for Meds: No Currently Unemployed: No Education: High School Diploma/GED Difficulty w/ Childcare or Family Care: No Living arrangements: with family Occupation/Education: retired Gender identity (if verbalized by the patient): Female Spiritual care concerns: No Agree to blood products: Yes Anes - Eval Final PreProcedure Day of Procedure 08/01/24 08:25 Patient weight: overweight Heart: regular rate and rhythm Lungs: clear to auscultation Airway: Mallampati scale class II Neurological: alert and oriented Last oral intake: >/= 8 hours ASA classification: III Emergent: no Anesthetic plan: proceed Anesthesia type and monitoring: general GIVS and standard monitoring Results Review: All pre-operative results and documents have been reviewed as part of the pre- operative evaluation. Informed Consent: The patient's anesthetic plan and its attendant risks and benefits were discussed with the patient/family/POA. Questions were solicited and answers pro vided to the satisfaction of the patient/family/POA.
--- NOTE | 2024-08-01 09:11 | PM.IMHP ---
H&P: HPI History of Present Illness Date/Time: 08/01/24 09:11 Chief Complaint: Iron deficiency anemia Narrative: the patient is referred by her primary care physician for the finding of iron deficiency anemia on recent routine checkup. Review of Systems Review of Systems: All systems reviewed & are unremarkable except as noted in HPI and below PMFSH Past Medical History Medical History Difficulty sleeping DJD (degenerative joint disease) Degenerative joint disease of knee Chronic venous insufficiency of lower extremity Medial meniscus tear Nausea after anesthesia Left knee injury Left knee pain Prediabetes Osteopenia Anterior dislocation of right shoulder Normal colonoscopy (~2016) Anxiety Atopic dermatitis H. pylori infection (~03/2019) Essential (primary) hypertension Hyperlipidemia GERD without esophagitis Dyspnea on exertion Surgical History Surgical History S/P left knee arthroscopy DOS 03/15/22 H/O bladder repair surgery [address] Edwards H/O lateral meniscus repair of right knee (~2004) History of total hysterectomy (~1996) Family History Family History Mother Carcinoma of colon, Onset Age: 80 Patient's mother is in good health Patient's mother is Family history of malignant neoplasm Father Family history of heart disease in male family member before age 55 Sibling Family history of heart disease in male family member before age 55 Family history of hypercholesterolemia Hypertension Family history of cardiovascular disease Grandparent Diabetes mellitus Cerebrovascular accident Other Family history of malignant neoplasm of breast Social History Social History Smoking packs per day: 1 Smoking cigarettes per day: 20.0 Years smoked: 6 Smoking pack-years: 6.00 Smoking status: Former smoker Tobacco type: cigarettes Smoking end date: 05/07/73 Alcohol intake: current Drinks per week: 0 Substance use: never Substance use type: does not use Lack of Transportation: No Lack of Food: Never True Current Housing: I Have Housing Concerned About Future Housing: No Difficulty Paying Gas/Electric Bills: No Difficulty Paying for Meds: No Currently Unemployed: No Education: High School Diploma/GED Difficulty w/ Childcare or Family Care: No Living arrangements: with family Occupation/Education: retired Gender identity (if verbalized by the patient): Female Spiritual care concerns: No Agree to blood products: Yes Meds Home Medications and Allergies Home Medications ?Medication ?Instructions ?Recorded ?Confirmed ?Type cholecalciferol (vitamin D3) 50 2,000 unit PO DAILY 03/10/19 08/01/24 History mcg (2,000 unit) capsule alprazolam 0.25 mg tablet 0.25 mg PO BID PRN anxiety #60 tabs 07/05/23 07/31/24 Rx mecobalamin (vitamin B12) 1,000 1,000 mcg PO DAILY 01/29/24 08/01/24 History mcg lozenges metformin 500 mg tablet,extended 500 mg PO DAILY #90 tabs 02/04/24 08/01/24 Rx release 24 hr amlodipine 5 mg tablet 5 mg PO DAILY 03/11/24 08/01/24 History pantoprazole 40 mg tablet,delayed 40 mg PO QAM #90 tabs 05/01/24 08/01/24 Rx release atorvastatin 10 mg tablet 10 mg PO QHS #90 tabs 06/23/24 08/01/24 Rx losartan 50 mg tablet 50 mg PO DAILY #90 tabs 06/23/24 08/01/24 Rx metoprolol succinate 25 mg 25 mg PO DAILY #90 tabs 06/23/24 08/01/24 Rx tablet,extended release 24 hr trazodone 50 mg tablet 50 mg PO QHS PRN sleep #90 tabs 06/23/24 07/31/24 Rx Allergies Allergy/AdvReac Type Severity Reaction Status Date / Time amoxicillin Allergy Unknown Swelling Verified 08/01/24 08:06 of Lip/Tongue/Throat Antihistamines - Alkylamine AdvReac Unknown Hyperactive Verified 08/01/24 08:06 amlodipine AdvReac edema Verified 08/01/24 08:06 Vital Signs Vital Signs - 24 hr 08/01/24 08:09 Temperature 96.5 F L Pulse Rate 97 Respiratory Rate 20 Blood Pressure 143/75 H Pulse Oximetry 98 Oxygen Delivery Room Air Exam Const: General: cooperative and healthy appearing Resp: Effort & Inspection: normal respiratory effort and able to speak in complete sentences Auscultation: clear to auscultation bilaterally Cardio: Rate: regular rate Rhythm: regular rhythm GI: Inspection: normal to inspection GI Palp: No No hepatosplenomegaly present Auscultation: normal bowel sounds Rectal Exam: deferred Skin: General skin exam: normal color Psych: Appearance: grossly normal Mental Status: mental status grossly normal Assessment and Plan Assessment and plan (1) Iron deficiency: Code(s): E61.1 - Iron deficiency Status: Acute Assessment and Plan: The patient is deemed a good candidate for the procedure. Consent signed. Will proceed.
[2024-08-01 09:46] VITALS: BP 106/55; PULSE 79; RESP 18; O2SAT 98
[2024-08-01 09:56] VITALS: BP 101/62; PULSE 76; RESP 24; O2SAT 100
[2024-08-01 10:06] VITALS: BP 126/57; PULSE 73; RESP 24; O2SAT 100
== END 2024-08-01 10:18 | disposition home or self-care (01) ==
PROVIDERS: PCP Family Medicine; Referring Provider Nurse Practitioner Family; Visit Provider Internal Medicine Gastroenterology
PROC: 0DJD8ZZ Inspection of Lower Intestinal Tract, Via Natural or Artificial Opening Endoscopic (ICD-10-PCS; CPT 45378; principal; 2024-08-01 09:00)
DX: D50.9 Iron deficiency anemia, unspecified (principal); K64.8 Other hemorrhoids; K57.30 Diverticulosis of large intestine without perforation or abscess without bleeding; E78.5 Hyperlipidemia, unspecified; I10 Essential (primary) hypertension; K21.9 Gastro-esophageal reflux disease without esophagitis; R73.03 Prediabetes; F41.9 Anxiety disorder, unspecified; I87.2 Venous insufficiency (chronic) (peripheral); M85.88 Other specified disorders of bone density and structure, other site; M17.10 Unilateral primary osteoarthritis, unspecified knee; L20.9 Atopic dermatitis, unspecified; Z79.84 Long term (current) use of oral hypoglycemic drugs; Z98.890 Other specified postprocedural states; Z87.891 Personal history of nicotine dependence; Z80.0 Family history of malignant neoplasm of digestive organs; Z80.3 Family history of malignant neoplasm of breast; Z82.49 Family history of ischemic heart disease and other diseases of the circulatory system
CPT/HCPCS: 45378; 82948; J2003; J2704; J7120

== ENCOUNTER 2024-08-14 01:46 | Day surgery (SDC) | payer MEDICARE, SELFPAY ==
[2024-08-07 11:48] VITALS: BMI 27.5
--- OUTSIDE RECORDS SUMMARY | 2024-08-14 01:49 | XMS_ITS | Clinical Summary ---
Author Organization [facility] [employer] Address [facility] [facility] [place] [address] Care Team Providers Care Linux Network Systems Administrator Name Role Phone Unavailable Primary Care Provider Unavailabl e Source Comments [facility] [employer],non-owned Affiliates and Associated Physician Practices is amultiple site organization consisting of ambulatory clinics and hospital sitesin [place], [place], [place] and [place]. This disclosure is being madepursuant to the Care Everywhere program and may not contain all information available regarding this patient. Last updated 18.[facility] [employer] Allergies Active Allergy Reactions Criticality Noted Date [...] VACCINE (1 - 2023-2 5 season) 2024 DEPRESSION SCREENING 05/07/2024 06/27/2023 MEDICARE AWV CALENDAR YEAR 2024 INFLUENZA VACCINE (Season Ended) 2025 HEPATITIS B VACCINE Aged Out No longe [...]
--- OUTSIDE RECORDS SUMMARY | 2024-08-14 01:49 | XMS_ITS | Clinical Summary ---
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 Sexual Orientation Not on file Obstetrics History [...] 1996 Well Visit 65+ 11/21/2011 Influenza Vaccine (Season Ended) 2025 02/13/2019, 02/04/2018, 01/27/2018, Additional history exists Insurance [facility] MDCR HMO REF [facility] Address: [address] [place] [phone] [facility] ADVANTAGE [facility] Address: [address] [place], [place] [phone] Care Teams Screening Technician Relationship Specialty Start Date End Date Anna Michel MD PCP - General Family Practice 12/22/19
--- OUTSIDE RECORDS SUMMARY | 2024-08-14 01:49 | XMS_ITS | Referral Summary ---
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
[2024-08-14 12:26] LABS: Glucose Point of Care 89 mg/dl (65-105)
[2024-08-14 12:28] VITALS: BP 148/89; PULSE 80; RESP 18; TEMP 36.2; O2SAT 100
--- NOTE | 2024-08-14 12:47 | WPDANESEPPF ---
Anes - Initial Pre Proc Eval Procedure: Operation Date: 08/14/24 13:45 Proposed Procedures p Esophagogastroduodenoscopy - Royer Palencia MD Date/Time: 08/14/24 12:47 Surgeon: Royer Palencia MD Pre Op Diagnosis: Anemia, unspecified Patient Data Age: 78 Gender: F Height: 1.75 m Weight: 85.8 kg Last Vital Signs Temp 97.1 F L 08/14/24 12:28 Pulse 80 08/14/24 12:28 Resp 18 08/14/24 12:28 BP 148/89 H 08/14/24 12:28 Pulse Ox 100 08/14/24 12:28 O2 Del Method Room Air 08/14/24 12:28 Allergies Allergy/AdvReac Type Severity Reaction Status Date / Time amoxicillin Allergy Unknown Swelling Verified 08/14/24 12:26 of Lip/Tongue/Throat Antihistamines - Alkylamine AdvReac Unknown Hyperactive Verified 08/14/24 12:26 amlodipine AdvReac edema Verified 08/14/24 12:26 Home Medications ?Medication ?Instructions ?Recorded ?Confirmed ?Type cholecalciferol (vitamin D3) 50 2,000 unit PO DAILY 03/10/19 08/14/24 History mcg (2,000 unit) capsule alprazolam 0.25 mg tablet 0.25 mg PO BID PRN anxiety #60 tabs 07/05/23 08/07/24 Rx mecobalamin (vitamin B12) 1,000 1,000 mcg PO DAILY 01/29/24 08/14/24 History mcg lozenges metformin 500 mg tablet,extended 500 mg PO DAILY #90 tabs 02/04/24 08/14/24 Rx release 24 hr amlodipine 5 mg tablet 5 mg PO DAILY 03/11/24 08/14/24 History pantoprazole 40 mg tablet,delayed 40 mg PO QAM #90 tabs 05/01/24 08/14/24 Rx release atorvastatin 10 mg tablet 10 mg PO QHS #90 tabs 06/23/24 08/14/24 Rx losartan 50 mg tablet 50 mg PO DAILY #90 tabs 06/23/24 08/14/24 Rx metoprolol succinate 25 mg 25 mg PO DAILY #90 tabs 06/23/24 08/14/24 Rx tablet,extended release 24 hr trazodone 50 mg tablet 50 mg PO QHS PRN sleep #90 tabs 06/23/24 08/14/24 Rx Laboratory Tests 08/14/24 12:21 POC Capillary Glucose 89 mg/dl (65-105) Patient hx anesthesia problems: none Family hx anesthesia problems: none Results Review: All pre-operative results and documents have been reviewed as part of the pre-operative evaluation. [facility] Past Medical History Medical History Difficulty sleeping DJD (degenerative joint disease) Degenerative joint disease of knee Chronic venous insufficiency of lower extremity Medial meniscus tear Nausea after anesthesia Left knee injury Left knee pain Prediabetes Osteopenia Anterior dislocation of right shoulder Normal colonoscopy (~2016) Anxiety Atopic dermatitis H. pylori infection (~03/2019) Essential (primary) hypertension Hyperlipidemia GERD without esophagitis Dyspnea on exertion Surgical History Surgical History S/P left knee arthroscopy DOS 03/15/22 H/O bladder repair surgery [address] Edwards H/O lateral meniscus repair of right knee (~2004) History of total hysterectomy (~1996) Family History Family History Mother Carcinoma of colon, Onset Age: 80 Patient's mother is in good health Patient's mother is Family history of malignant neoplasm Father Family history of heart disease in male family member before age 55 Sibling Family history of heart disease in male family member before age 55 Family history of hypercholesterolemia Hypertension Family history of cardiovascular disease Grandparent Diabetes mellitus Cerebrovascular accident Other Family history of malignant neoplasm of breast Social History Social History Smoking packs per day: 1 Smoking cigarettes per day: 20.0 Years smoked: 6 Smoking pack-years: 6.00 Smoking status: Former smoker Tobacco type: cigarettes Smoking end date: 05/07/73 Alcohol intake: current Alcohol use details: rare Substance use: never Substance use type: does not use Lack of Transportation: No Lack of Food: Never True Current Housing: I Have Housing Concerned About Future Housing: No Difficulty Paying Gas/Electric Bills: No Difficulty Paying for Meds: No Currently Unemployed: No Education: High School Diploma/GED Difficulty w/ Childcare or Family Care: No Living arrangements: alone Occupation/Education: retired Gender identity (if verbalized by the patient): Female Spiritual care concerns: No Agree to blood products: Yes Anes - [place] Final PreProcedure Day of Procedure 08/14/24 12:47 Patient weight: normal Heart: regular rate and rhythm Lungs: clear to auscultation Airway: Mallampati scale class II Neurological: alert and oriented Last oral intake: >/= 8 hours ASA classification: III Emergent: no Anesthetic plan: proceed Anesthesia type and monitoring: general GIVS and standard monitoring Results Review: All pre-operative results and documents have been reviewed as part of the pre-operative evaluation. Informed Consent: The patient's anesthetic plan and its attendant risks and benefits were discussed with the patient/family/POA. Questions were solicited and answers provided to the satisfaction of the patient/family/POA.
[2024-08-14] MEDS: LACTATED RINGERS 1,000 ML 150 ML IV CONT (12:51)
--- NOTE | 2024-08-14 14:27 | PM.IMHP ---
H&P: HPI History of Present Illness Date/Time: 08/14/24 14:27 Chief Complaint: Iron deficiency anemia Narrative: the patient was referred to weeks ago for colonoscopy due to iron deficiency anemia. There were no findings explaining this problem. She is here for upper endoscopy. Review of Systems Review of Systems: All systems reviewed & are unremarkable except as noted in HPI and below PMFSH Past Medical History Medical History Difficulty sleeping DJD (degenerative joint disease) Degenerative joint disease of knee Chronic venous insufficiency of lower extremity Medial meniscus tear Nausea after anesthesia Left knee injury Left knee pain Prediabetes Osteopenia Anterior dislocation of right shoulder Normal colonoscopy (~2016) Anxiety Atopic dermatitis H. pylori infection (~03/2019) Essential (primary) hypertension Hyperlipidemia GERD without esophagitis Dyspnea on exertion Surgical History Surgical History S/P left knee arthroscopy DOS 03/15/22 H/O bladder repair surgery [address] Edwards H/O lateral meniscus repair of right knee (~2004) History of total hysterectomy (~1996) Family History Family History Mother Carcinoma of colon, Onset Age: 80 Patient's mother is in good health Patient's mother is Family history of malignant neoplasm Father Family history of heart disease in male family member before age 55 Sibling Family history of heart disease in male family member before age 55 Family history of hypercholesterolemia Hypertension Family history of cardiovascular disease Grandparent Diabetes mellitus Cerebrovascular accident Other Family history of malignant neoplasm of breast Social History Social History Smoking packs per day: 1 Smoking cigarettes per day: 20.0 Years smoked: 6 Smoking pack-years: 6.00 Smoking status: Former smoker Tobacco type: cigarettes Smoking end date: 05/07/73 Alcohol intake: current Alcohol use details: rare Substance use: never Substance use type: does not use Lack of Transportation: No Lack of Food: Never True Current Housing: I Have Housing Concerned About Future Housing: No Difficulty Paying Gas/Electric Bills: No Difficulty Paying for Meds: No Currently Unemployed: No Education: High School Diploma/GED Difficulty w/ Childcare or Family Care: No Living arrangements: alone Occupation/Education: retired Gender identity (if verbalized by the patient): Female Spiritual care concerns: No Agree to blood products: Yes Meds Home Medications and Allergies Home Medications ?Medication ?Instructions ?Recorded ?Confirmed ?Type cholecalciferol (vitamin D3) 50 2,000 unit PO DAILY 03/10/19 08/14/24 History mcg (2,000 unit) capsule alprazolam 0.25 mg tablet 0.25 mg PO BID PRN anxiety #60 tabs 07/05/23 08/07/24 Rx mecobalamin (vitamin B12) 1,000 1,000 mcg PO DAILY 01/29/24 08/14/24 History mcg lozenges metformin 500 mg tablet,extended 500 mg PO DAILY #90 tabs 02/04/24 08/14/24 Rx release 24 hr amlodipine 5 mg tablet 5 mg PO DAILY 03/11/24 08/14/24 History pantoprazole 40 mg tablet,delayed 40 mg PO QAM #90 tabs 05/01/24 08/14/24 Rx release atorvastatin 10 mg tablet 10 mg PO QHS #90 tabs 06/23/24 08/14/24 Rx losartan 50 mg tablet 50 mg PO DAILY #90 tabs 06/23/24 08/14/24 Rx metoprolol succinate 25 mg 25 mg PO DAILY #90 tabs 06/23/24 08/14/24 Rx tablet,extended release 24 hr trazodone 50 mg tablet 50 mg PO QHS PRN sleep #90 tabs 06/23/24 08/14/24 Rx Allergies Allergy/AdvReac Type Severity Reaction Status Date / Time amoxicillin Allergy Unknown Swelling Verified 08/14/24 12:26 of Lip/Tongue/Throat Antihistamines - Alkylamine AdvReac Unknown Hyperactive Verified 08/14/24 12:26 amlodipine AdvReac edema Verified 08/14/24 12:26 Vital Signs Vital Signs - 24 hr 08/14/24 12:28 Temperature 97.1 F L Pulse Rate 80 Respiratory Rate 18 Blood Pressure 148/89 H Pulse Oximetry 100 Oxygen Delivery Room Air Exam Const: General: cooperative and healthy appearing Resp: Effort & Inspection: normal respiratory effort and able to speak in complete sentences Auscultation: clear to auscultation bilaterally Cardio: Rate: regular rate Rhythm: regular rhythm GI: Inspection: normal to inspection GI Palp: No No hepatosplenomegaly present Auscultation: normal bowel sounds Rectal Exam: deferred Skin: General skin exam: normal color Psych: Appearance: grossly normal Mental Status: mental status grossly normal Assessment and Plan Assessment and plan (1) Iron deficiency anemia: Code(s): D50.9 - Iron deficiency anemia, unspecified Status: Acute Assessment and Plan: The patient is deemed a good candidate for the procedure. Consent signed. Will proceed.
[2024-08-14 14:45] VITALS: BP 97/52; PULSE 77; RESP 25; O2SAT 95
[2024-08-14 14:55] VITALS: BP 88/58; PULSE 77; RESP 37; O2SAT 94
[2024-08-14 15:05] VITALS: BP 122/70; PULSE 72; RESP 19; O2SAT 99
== END 2024-08-14 15:14 | disposition home or self-care (01) ==
PROVIDERS: PCP Family Medicine; Referring Provider Internal Medicine Gastroenterology; Visit Provider Internal Medicine Gastroenterology
PROC: 0DJ08ZZ Inspection of Upper Intestinal Tract, Via Natural or Artificial Opening Endoscopic (ICD-10-PCS; CPT 43239; principal; 2024-08-14 13:45)
DX: D50.9 Iron deficiency anemia, unspecified (principal); K44.9 Diaphragmatic hernia without obstruction or gangrene; K29.30 Chronic superficial gastritis without bleeding; I10 Essential (primary) hypertension; E78.5 Hyperlipidemia, unspecified; R73.03 Prediabetes; Z87.891 Personal history of nicotine dependence
CPT/HCPCS: 43239; 82948; 88305; J2003; J2704; J7120

== ENCOUNTER 2024-09-15 05:49 | Outpatient (CLI) | payer MEDICARE, SELFPAY ==
--- OUTSIDE RECORDS SUMMARY | 2024-09-15 05:51 | XMS_ITS | Patient Health Record ---
Author Organization [employer] Address [address] [facility] [place] [address] Care Team Providers Care Machine Spreader Name Role Phone Maame Mercedes MD Primary Care Provider Chuck Canseco Unavailable [phone] Allergies Allergen (clinical drug ingredient) Drug/Non Drug [...] Problem Status W/U Status Risk Notes Problem [id number] GERD (gastroesopha geal reflux disease) (K21.9) Active confirmed She has been on pantoprazole 40 mg daily long-term for management of reflux symptoms. Problem 686444123 History of colon polyps (Z86.010) Active confirmed Her last colonoscopy in 2017 revealed a small polyp and she was advised to follow-up in 5 years. Problem [id number] Chest pain (R07.9) Active confirmed Problem [id number] H. pylori infection (A04.8) Active confirmed She [...] Insured Coverage Start Date Coverage End Date [facility] Medicare Advantage HMO-POS [address] [address] [place] [address] [id number] Luis Bruner Self - patient is the insured Medical (General) History Medical History History ICD Code GERD Hypertension H. Pylori Colon Polyps Surgical History Surgery Date(Month/Year) Hysterectomy/ Bladder Repair 1995 Bladder Repair 1997 Meniscus Repair 2004 Colonoscopy 2017 Upper Endoscopy 2003
--- OUTSIDE RECORDS SUMMARY | 2024-09-15 05:51 | XMS_ITS | Clinical Summary ---
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 Gender Identity Female 06/02/2019 9:44 PM FILTER PRESS SUPERVISOR Sexual Orientation Not on file Obstetrics History [...] 02/13/2019, 02/04/2018, 01/27/2018, Additional history exists Insurance [facility] MDCR HMO REF [facility] MED[facility] Address: [address] [place], [place] [id number] [facility] MEDICARE ADVANTAGE [facility] Address: [address] [place], [place] [phone] Care Teams Laborer/Grade Check Relationship Specialty Start Date End Date Anna Michel MD PCP - General Family Practice 12/22/19
--- OUTSIDE RECORDS SUMMARY | 2024-09-15 05:51 | XMS_ITS | Referral Summary ---
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
--- OUTSIDE RECORDS SUMMARY | 2024-09-15 05:51 | XMS_ITS | Clinical Summary ---
Author Organization [facility] [employer] Address [address] [place] [address] Care Team Providers Care General Warehouse Worker Name Role Phone Unavailable Primary Care Provider Unavailabl e Source Comments [facility] [employer],non-owned Affiliates and Associated Physician Practices is amultiple site organization consisting of ambulatory clinics and hospital sitesin [place], [place]. This disclosure is being madepursuant to the Care Everywhere program and may not contain all information available regarding this patient. Last updated 18.[facility] Allergies Active Allergy Reactions Criticality Noted Date Comments Penicillins Swelling,Unknown 01/09/2014 Medications * Be aware that medications may not be up to date on this document. Alwaysverify current medications with the patient. 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 Gender Identity Not on file Sexual Orientation [...] - 1-dose 75+ series) 2021 COVID-19 VACCINE ( - 2023-2 5 season) 2024 DEPRESSION SCREENING [...] on patient's age to complete this topic Insurance [facility] MANAGED MEDICARE ADV [facility] MANAGED [place] [address] SELF PAY NO INSURANCE Member Subscriber Plan / Payer (Ef fective for All Dates) Name:Luis Solis Member ID:Not on file Relation to Subscriber:Not on file Name:LUIS SOLIS Subscriber ID:Not on file (Home) Address: [address] [place] [phone] Payer ID:Not on file Group ID:Not on file Type:Self Pay Address: [place], [place]
--- NOTE | 2024-09-15 06:40 | SUR.OPER ---
Patient brought to GI Lab. Instructions for patient undergoing Capsule Endoscopy reviewed with patient. Consent form signed. Sensor array applied to patient's abdomen and connected to recorded. Patient swallowed capsule with 12 ozs of water infused with Simethicone. Patient instructed they may have clear liquids at 0830 this AM and eat or drink at 1030 this AM. Patient instructed to return to GI Lab at 1500 this afternoon for removal of recording device and to call [phone] or to return to the hospital if any nausea and vomiting or abdominal pain is experienced. Pt voiced understands instructions no questions.
--- NOTE | 2024-09-15 14:57 | SUR.PHASEII ---
Patient returned to the GI Lab [id number] for recorder box removal. Patient voiced no complaints. States they have understanding of instructions. Patient left ambulatory.
== END 2024-09-15 05:50 | disposition home or self-care (01) ==
LOC: ANHENDO 05:50
PROVIDERS: PCP Family Medicine; Referring Provider Internal Medicine Gastroenterology; Visit Provider Internal Medicine Gastroenterology
PROC: 0DJ07ZZ Inspection of Upper Intestinal Tract, Via Natural or Artificial Opening (ICD-10-PCS; CPT 91110; principal; 2024-09-15 07:00)
DX: Z01.818 Encounter for other preprocedural examination (principal); D50.9 Iron deficiency anemia, unspecified
CPT/HCPCS: 91110

== ENCOUNTER 2024-10-31 13:17 | Outpatient (CLI) | payer MEDICARE, SELFPAY ==
[2024-10-31 13:32] LABS: Basophils Absolute Auto 0.1 K/mm3 (0.0-0.1); Basophils Percent Auto 1.6 % (0.2-1.2); Eosinophils Absolute Auto 0.2 K/mm3 (0-0.3); Eosinophils Percent Auto 3.5 % (0-4.4); Hematocrit 31.6 % (37.0-47.0); Hemoglobin 9.4 g/dL (12.0-15.0); Immature Granulocyte Absolute 0.01 K/mm3 (0.00-0.031); Immature Granulocyte Percent A 0.2 % (0-0.5); Lymphocytes Absolute Auto 0.95 K/mm3 (0.9-3.2); Lymphocytes Percent Auto 19.4 % (18.3-44.2); Mean Corpuscular HGB Conc 29.7 g/dl (32-36); Mean Corpuscular Hemoglobin 24.3 pg (26-34); Mean Corpuscular Volume 81.7 fl (80-100); Mean Platelet Volume 8.5 fl (7.4-10.4); Monocytes Absolute Auto 0.4 K/mm3 (0.1-0.6); Monocytes Percent Auto 7.2 % (2.6-8.5); Neutrophils Absolute Auto 3.3 K/mm3 (1.3-6.7); Neutrophils Percent Auto 68.1 % (45.5-73.1); Platelet Count Result 361 k/mm3 (150-375); Red Blood Count 3.87 M/mm3 (4.2-5.4); Red Cell Distribution Width 17.5 % (11.5-14.5); White Blood Count 4.9 K/mm3 (4.5-10.0)
[2024-10-31 13:45] LABS: Hypochromasia 1+; Platelet Estimate Adequate (Adequate)
[2024-10-31 13:47] LABS: Anisocytosis 1+
[2024-10-31 13:48] LABS: Large Platelets Present; Schistocytes Rare
[2024-10-31 15:07] LABS: Alanine Aminotransferase 14 U/L (6-35); Albumin Level 4.1 g/dL (3.5-5.1); Alkaline Phosphatase 59 U/L (38-126); Anion Gap 8 mmol/L (4-12); Aspartate Amino Transferase 50 U/L (14-36); Bilirubin,Total 0.3 mg/dL (0.2-1.3); Blood Urea Nitrogen 14 mg/dL (7-17); Calcium 9.3 mg/dL (8.4-10.2); Carbon Dioxide 28 mmol/L (22-30); Chloride 104 mmol/L (98-107); Estimated Glomerular Filt Rate > 60; Glucose 96 mg/dL (65-110); Potassium 4.4 mmol/L (3.4-5.0); Sodium 140 mmol/L (137-145); Total Protein 7.8 g/dL (6.3-8.2)
[2024-10-31 15:30] LABS: Iron 42 ug/dL (37-170)
[2024-10-31 15:45] LABS: Percent Iron Saturation 10 % (20-50)
[2024-10-31 16:07] LABS: Ferritin 8.13 ng/mL (11.1-264)
[2024-10-31 16:14] LABS: Folic Acid 11.8 ng/mL (2.76->20)
[2024-10-31 16:24] LABS: Vitamin B12 > 1000.0 pg/mL (239-931)
[2024-11-03 22:59] LABS: Methylmalonic Acid. 88 nmol/L (69-390)
[2024-11-04 12:13] LABS: Soluble Transferrin Receptor 2.64 mg/L (0.76-1.76)
== END 2024-10-31 13:18 | disposition home or self-care (01) ==
LOC: ANHLAB 13:18
PROVIDERS: PCP Family Medicine; Visit Provider Internal Medicine Hematology & Oncology
DX: D64.9 Anemia, unspecified (principal)
CPT/HCPCS: 36415; 80053; 82607; 82728; 82746; 83540; 83550; 83921; 84238; 85025